=== PATIENT | female | born 1950 | race Caucasian/White ===

== ENCOUNTER → 2016-11-09 | Outpatient (CLI) | payer OTHER, BC ==
[~2016-11-09] VITALS: Ht 162.6 cm; Wt 125.4 kg
[~2016-11-09] MED LIST: BENICAR HCT 401 EAC1 PO; BENICAR40 MG PO; COUMADIN 4 MG TA4 M1 PO; CYCLOBENZAPRINE10 MG PO; DEXILANT30 MG PO; EXCEDRIN CAPLE1 EACH PO; FISH OIL 1,0001 EAC5 PO; HYDROCODON-ACE1 EAC7 PO; HYDROCODON-ACE1 EACH PO; HYDROCODONE-AP1 EAC6 PO; LUNESTA3 MG PO; METAXALONE800 MG PO; NABUMETONE 500500 M1 PO; NEXIUM40 MG PO; PAXIL40 MG PO; PERCOCET PO; SIMVASTATIN20 MG PO; SKELAXIN 800 M800 M1 PO; TOVIAZ8 MG PO; TRICOR145 MG PO; VESICARE 5 MG TA5 M1 PO; ZOLOFT50 MG PO
--- NOTE | ~2016-11-09 | HPC ---
[facility] [place] [address] [address] [place] [address] PAIN MANAGEMENT CONSULTATION Name: SONA VILLEGAS Room #: REG [facility].#: [id number] Admission: 11/09/16 Attend Phys: Toni Santos MD Discharge: Date of : 48 Report #: [id number] THIS REPORT FOR: //name// CC: Vania Santos DATE OF SERVICE: 11/09/2016 Followup visit for low back pain, bilateral lower extremities. The patient returns to pain clinic today for renewal of medication under terms of an opioid agreement. She has done well with her spondylosis and radiculopathy with an intermittent injection and use of a small amount of hydrocodone. I provided with hydrocodone 5/325. She takes one to two tablets 2-4 times a day, averaging no more than 20 mg of hydrocodone or about 20 morphine mg equivalents per day. She stands this for some time under terms of our agreement and shown no misuse or abuse. Urine drug screen will be performed as part of our agreement. We reviewed her contract in detail and he has agreed to safeguard her medications appropriately as discussed before. She had no other significant health changes recently. PHYSICAL EXAMINATION: VITAL SIGNS: Her blood pressure is 153/92, heart rate 53 and her BMI is 47.4. She is able to move easily from sitting to standing position and walk without antalgic feature. She has pain across her low back and straight leg raising discomfort. IMPRESSION: Chronic low back pain with radiculopathy. PLAN: I renewed her medication under terms of our opioid agreement. She will safeguard her medication. <ELECTRONICALLY SIGNED> By: Toni Santos MD 11/11/16 1329 [id number] 2044 Toni Santos MD /nt
[2016-11-09 15:03] VITALS: BP 153/92
== END | disposition home or self-care (01) ==
LOC: PAIN 14:41
DX: M54.16 Radiculopathy, lumbar region (principal); G89.29 Other chronic pain; Z87.891 Personal history of nicotine dependence

== ENCOUNTER → 2017-03-06 | Outpatient (CLI) | payer OTHER, BC ==
[~2017-03-06] VITALS: Ht 157.5 cm; Wt 124.7 kg
--- NOTE | ~2017-03-06 | HPC ---
[facility] [address] [address] PAIN MANAGEMENT CONSULTATION Name: SONA VILLEGAS Room #: REG [facility] Shania.#: [id number] Admission: 03/06/17 Attend Phys: Toni Santos MD Discharge: Date of : 48 Report #: [id number] THIS REPORT FOR: //name// CC: Vania Santos DATE OF SERVICE: 03/06/2017 DATE OF REGISTRATION: 03/06/2017 Followup visit for chronic low back pain with radiculopathy, medication management. I am seeing the patient today at a 3-month interval visit. I see her for management of high risk medication. She continues to do quite well on small dose of hydrocodone which I have been providing for her dating back nearly 10 years. She has never shown any opioid misuse nor has she demonstrated signs of an opioid use disorder. We are treating chronic intractable pain and she has done very well with it. She has been using medication in lieu of injections and finds that she is doing really quite well. Her last course of physical therapy was in November of 2015 when she was referred for therapeutic exercise strengthening, gait training and home program for her spondylosis. I was also concerned because of her osteoporosis and her risk of fracture. She has been managing that also with medication. PHYSICAL EXAMINATION: She is a destiny 66-year-old pleasant, alert and oriented. She shows no signs of discomfort during our discussion but scores her pain as a 4. When she moves and walks, she has immediate discomfort in the back and range of motion is limited there. She has localized tenderness across the lumbosacral spine without radiculopathy. IMPRESSION: 1. Chronic intractable low back pain. She has had history of radiculopathy, but today it demonstrates no evidence of radiculopathy. Most of her pain is spondylitic in nature. 2. Morbid obesity. 3. Management of high risk medication. PLAN: I renewed her hydrocodone at 5/325, #120 tablets per month. We discussed our opioid agreement in detail, risks and benefits of medication and also the CDC guidelines. [facility] [address] [facility] [place] [address] PAIN MANAGEMENT CONSULTATION Name: VILLEGASSONA Room #: REG [facility] Wylie#: [id number] Admission: 03/06/17 Attend Phys: Toni Santos MD Discharge: Date of : 48 Report #: [id number] Plan for her is to return in 3 months. By: [id number] Toni Santos MD /nt
[2017-03-06 14:06] VITALS: BP 159/113
== END ==
LOC: PAIN 07:44
DX: M54.16 Radiculopathy, lumbar region (principal); G89.29 Other chronic pain; E66.01 Morbid (severe) obesity due to excess calories; I10 Essential (primary) hypertension; Z87.891 Personal history of nicotine dependence

== ENCOUNTER → 2017-06-05 | Outpatient (CLI) | payer OTHER, BC ==
[~2017-06-05] VITALS: Ht 157.5 cm; Wt 126.1 kg
[~2017-06-05] MED LIST changes: +NORVASC5 MG PO
--- NOTE | ~2017-06-05 | HPC ---
[facility] [place] [address] [place] [address] PAIN MANAGEMENT CONSULTATION Name: SONA VILLEGAS Room #: REG [facility] Dejan#: [id number] Admission: 06/05/17 Attend Phys: Toni Santos MD Discharge: Date of : 48 Report #: [id number] THIS REPORT FOR: //name// CC: Vania Meade Toni Santos DATE OF SERVICE: 06/06/2017 Followup visit for persistent low back pain with radiculopathy. The patient returns to the pain clinic today for a 15-minute followup visit. She has a pain score of 5-6. It is worse with standing, walking and weather changes. She has been trying to do pool exercise, but just cannot do much of it because it increases her back pain after she has done. She has tried to push through that initial exercise, but says it is getting more difficult. She has radiating pain into the thigh in the L5-S1 distribution, which has also been worsening and is burning and constant. MEDICATIONS: Amlodipine, I provided her with hydrocodone 5/325 as needed 4 times daily, cyclobenzaprine is taken at bedtime, omeprazole, Zoloft, Toviaz, simvastatin, olmesartan, and nabumetone 500 mg b.i.d. Side effects of nonsteroidal anti-inflammatory drugs reviewed. PHYSICAL EXAMINATION: She is obese with a BMI of 50.8, blood pressure 130/90, heart rate 104. She is able to move from a sitting to standing position independently, but has pain across her back when she stands and flexes her back and extends. Straight leg raising reproduces pain in the L5-S1 distribution bilaterally. Sensation is intact. No focal weakness. IMPRESSION: Low back pain with radiculopathy. PLAN: 1. I renewed her medication under terms of an opioid agreement. Safeguarding her medications is critical. Without medication, she would have difficulty getting about and she is grateful for the relief that she gets. She notices the importance of safeguarding medication. 2. MRI of the lumbar spine will help determine further directions. We have discussed repeating the injections also spinal cord stimulation in addition to possible surgery, which she is hopeful to avoid. She understands that weight plays a big role in her problems, but it is difficult for her to lose weight, but she can move without pain. [address] [address] PAIN MANAGEMENT CONSULTATION Name: SONA VILLEGAS Alin Room #: REG [facility]#: [id number] Admission: 06/05/17 Attend Phys: Toni Santos MD Discharge: Date of : 48 Report #: [id number] Followup visit is scheduled after the MRI. By: 1215 1246 Toni Santos MD /nt
[2017-06-05 13:49] VITALS: BP 130/90
== END | disposition home or self-care (01) ==
LOC: PAIN 07:38
DX: M54.16 Radiculopathy, lumbar region (principal); Z68.43 Body mass index [BMI] 50.0-59.9, adult; Z87.891 Personal history of nicotine dependence

== ENCOUNTER → 2017-07-13 | Outpatient (CLI) | payer OTHER, BC ==
[~2017-07-13] VITALS: Ht 157.5 cm; Wt 126.1 kg
[~2017-07-13] MED LIST changes: +HYDROCODON-ACE1 EAC5 PO
--- NOTE | ~2017-07-13 | HPC ---
[facility] [place] [address] PAIN MANAGEMENT CONSULTATION Name: SONA VILLEGAS Room #: REG [facility] Dejan#: [id number] Admission: 07/13/17 Attend Phys: Toni Santos MD Discharge: Date of : 48 Report #: [id number] THIS REPORT FOR: //name// CC: Vania Deshaun Santos DATE OF SERVICE: 07/13/2017 DATE OF SERVICE: 07/13/2017 Followup visit for low back pain with radiculopathy. The patient returns to pain clinic today with a new MRI performed one 06/13/2017. We took a fair amount of time to review this study. Her MRI shows that she has multilevel spondylosis with mild dextroscoliosis. This creates multilevel high grade neural foraminal stenosis at L1-L2, L2-L3, L3-L4 and L4-L5. Findings are moderate to advanced on the right at L3-L4 and L4-L5. This is consistent with her current complaints of pain. Majority of her pain is in her low back and radiates into her right leg to her foot. It has been much more severe over the course of the last several months and even the last 2 weeks have been significantly worse. She has been managed in the past with medication taking hydrocodone 4 times daily. She is here today for trial of epidural steroid injection. PHYSICAL EXAMINATION: She is morbidly obese with a BMI around 50. Blood pressure is 177/111 today. Heart rate is 89. She is able to move independently from sitting to standing position, walks with painful gait. She has pain across the low back and radiating pain with straight leg raising. Sensation is diminished. Deep tendon reflexes are diminished in the lower extremities. IMPRESSION: 1. Chronic intractable low back pain with radiculopathy, bilateral, worse on the right. X-ray evidence of significant neural foraminal narrowing at multiple levels. 2. Hypertension. This is chronic, but it is worse today and this is felt to be related to her pain. 3. Morbid obesity. 4. Management of high risk medication. PLAN: 1. 25 minutes spent counseling. She was given more medications under terms of our opioid agreement. We discussed safeguarding aspects of the use of this medicine under terms of our agreement. We reviewed the opioid crisis in the [address] [address] PAIN MANAGEMENT CONSULTATION Name: SONA VILLEGAS Room #: REG [facility] Wylie#: [id number] Admission: 07/13/17 Attend Phys: Toni Santos MD Discharge: Date of : 48 Report #: [id number] [place]. 2. Epidural steroid injection under fluoroscopic guidance. PROCEDURE: The patient was taken to the fluoroscopic suite, placed prone, skin prepped with ChloraPrep. Skin anesthetized over the L3-L4 interspace. A 6-inch 20-gauge Tuohy epidural needle advanced in the epidural space in the first attempt, no blood or CSF was aspirated. 1 mL of 0.5% lidocaine was injected along with 80 mg of triamcinolone. She tolerated the procedure well. She was observed for 45 minutes and discharged with a reduction of pain to 4. Followup visit planned in 2-3 weeks. By: [id number] Toni Santos MD /nt
[2017-07-13 13:50] VITALS: BP 148/93
== END | disposition home or self-care (01) ==
LOC: PAIN 07:09
DX: M47.26 Other spondylosis with radiculopathy, lumbar region (principal); E66.01 Morbid (severe) obesity due to excess calories; Z68.43 Body mass index [BMI] 50.0-59.9, adult; I10 Essential (primary) hypertension; M48.06 Spinal stenosis, lumbar region; Z87.891 Personal history of nicotine dependence

== ENCOUNTER → 2018-01-03 | Outpatient (CLI) | payer OTHER ==
[~2018-01-03] VITALS: Ht 157.5 cm; Wt 114.7 kg
[~2018-01-03] MED LIST changes: +TRAZODONE HCL50 MG PO
--- NOTE | ~2018-01-03 | HPC ---
[facility] [address] [address] PAIN MANAGEMENT CONSULTATION Name: SONA VILLEGAS Room #: REG [facility] Shania.#: [id number] Admission: 01/03/18 Attend Phys: Toni Santos MD Discharge: Date of : 48 Report #: [id number] THIS REPORT FOR: //name// CC: Dr. Angie Santos DATE OF SERVICE: 01/03/2018 Followup visit for low back pain with radiculopathy. The patient is in the clinic today having lost 25 pounds and she is scheduled for bariatric surgery with Dr. Adams in the upcoming month. She has done well. She is hopeful that with weight loss, she will obtain better management of her back pain. She was inspired greatly by Dr. Reece neurosurgeon who saw her back in 08/2017. Despite her weight loss and her increasing activity, she still has pain in the level of 4-5/10 per day even with use of medicines. We will continue the medications until she has lost further weight and we will continue to encourage a rehabilitative approach. All medications were reviewed and reconciled. She is on Flexeril at bedtime, hydrocodone 10/325 4 times daily. She has had no significant side effects. She is not a fall risk currently. She is on a blood thinner. She has a history of hypertension. She is on an opioid agreement, which was initially signed in 06/2016. She has been provided with risk assessment tool, which shows that she is at low risk. She does not smoke nor does she use alcohol. IMPRESSION: 1. Chronic low back pain with spondylosis. 2. Status post left knee replacements. 3. Morbid obesity. 4. Spinal stenosis with radiculopathy. 5. Management of high risk medication. PLAN: I renewed her medications. I anticipate seeing her back in the pain clinic after her weight loss surgery. We will continue to try and use the lowest effective dose. We have evaluated her morphine milligram equivalency and discussed the CDC guidelines again today. [address] [address] PAIN MANAGEMENT CONSULTATION Name: SONA VILLEGAS Room #: REG [facility] Jauregui.#: [id number] Admission: 01/03/18 Attend Phys: Toni Santos MD Discharge: Date of : 48 Report #: [id number] Follow up in 3 months. <ELECTRONICALLY SIGNED> By: Toni Santos MD 02/12/18 1408 1718 0434 Toni Santos MD /nt
[2018-01-03 14:13] VITALS: BP 150/95
== END ==
LOC: PAIN 07:04
DX: M54.16 Radiculopathy, lumbar region (principal); M47.896 Other spondylosis, lumbar region; E66.01 Morbid (severe) obesity due to excess calories; Z96.652 Presence of left artificial knee joint; Z79.899 Other long term (current) drug therapy; Z68.42 Body mass index [BMI] 45.0-49.9, adult

== ENCOUNTER → 2018-04-09 | Outpatient (CLI) | payer OTHER ==
[~2018-04-09] VITALS: Ht 157.5 cm; Wt 105.3 kg
--- NOTE | ~2018-04-09 | HPC ---
[facility] [address] [place] [address] PAIN MANAGEMENT CONSULTATION Name: SONA VILLEGAS Room #: REG [facility] Leslee.#: [id number] Admission: 04/09/18 Attend Phys: Toni Santos MD Discharge: Date of : 48 Report #: [id number] THIS REPORT FOR: //name// CC: Vania Deshaun Santos Followup visit for chronic low back pain with radiculopathy. The patient returns to pain clinic today anxious and a bit excited about her upcoming surgery. She is going to have bariatric surgery with Dr. Adams. She is grateful that the surgery has been approved and that she is so close to having it. We talked about the surgery itself, postoperative pain and her recovery. We are hopeful that this will be helpful for her low back as well as her osteoarthritis. Conditions that caused pain for her include low back with spondylitic changes. She has chronic osteoarthritis and is status post left knee replacement and still has some pain there. She has spinal stenosis with radiculopathy. Today, she reports her pain score is a 4-5. She is on 40 morphine milligram equivalents at hydrocodone 10/325 four times daily. I reviewed the CDC guideline with her and talked about her dosing. We will carefully continue to monitor her under terms of our written agreement. PHYSICAL EXAMINATION: Shows blood pressure of 136/80, heart rate 107, respirations 20. BMI is 42.5. She is able to move from sitting to standing position, walks with some antalgic features, lying on a little bit of support from the chair. She has pain and tenderness in her knee across her low back. She has positive straight leg raising noted as well. Sensation is diminished in the lower extremities as well as deep tendon reflexes. IMPRESSION: 1. Chronic intractable low back pain under terms of written opioid agreement. 2. Lumbar radiculopathy. 3. Morbid obesity. 4. Management of high risk medication. I provided her with hydrocodone 10/325, 120 tablets for release today, 4 and 8 weeks. She was given Flexeril 10 mg at bedtime, which she has been using chronically to help with muscle spasm, back pain and sleep without side effect. She may need some additional support during the postoperative period and she will notify us of pain relief as an issue. By: 1114 25 Toni Santos MD /nt
[2018-04-09 09:54] VITALS: BP 136/80
== END ==
LOC: PAIN 06:49
DX: M54.16 Radiculopathy, lumbar region (principal); E66.01 Morbid (severe) obesity due to excess calories; F11.90 Opioid use, unspecified, uncomplicated; Z68.41 Body mass index [BMI] 40.0-44.9, adult

== ENCOUNTER → 2018-08-27 | Outpatient (CLI) | payer OTHER ==
[~2018-08-27] VITALS: Ht 157.5 cm; Wt 90.4 kg
--- NOTE | ~2018-08-27 | HPC ---
[facility] [address] [place] [address] PAIN MANAGEMENT CONSULTATION Name: SONA VILLEGAS Alin [facility] [id number] Admission: 08/27/18 Attend Phys: Lily King Discharge: Date of : 48 Report #: [id number] THIS REPORT FOR: //name// CC: Lily King KHOI Meade DATE OF SERVICE: 08/27/2018 REASON FOR VISIT: Followup visit today for her chronic low back pain with radiculopathy for her medication management. HISTORY OF PRESENT ILLNESS: The patient returns today to the clinic for her medication management, refill of her medicines for her low back pain and her hip pain. She had bariatric surgery in April and has since lost 32 pounds. She states she is feeling much better. She is doing physical therapy at the facility twice a week and at home she continues her therapy. She states that she has pain of 5-6 today because she has been splitting her pills in half to get to appointment since she was unable to get in sooner, so her pain score is little higher than it had been. She states she has pain mostly with walking, standing, but her medications do help significantly. She states she is feeling so much better since she had her bariatric surgery. ALLERGIES: No known drug allergies. MEDICATION: List hydrocodone 10/325 up to 4 times a day, cyclobenzaprine 10 t.i.d., trazodone 50 mg at bedtime, amlodipine 5 mg once a day, Nexium 40 mg twice a day, Zoloft 50 mg at bedtime, Toviaz 8 mg daily, Benicar 40 mg once a day, nabumetone 50 mg twice a day. PQRS: 1. The patient has a history of osteoarthritis in her hips and lower back. Denies rheumatoid arthritis. 2. The patient is 5 feet 2 inches, weight today is 199. BMI is 36.4. 3. Vital signs: Blood pressure 138/103, pulse is 92, respirations 18, oxygen sat is 97. 4. Pain score 5-6. 5. Fall risk. Denies dizziness, does not need help walking or standing and has not fallen in the last 3 months. 6. Denies blood thinners. 7. Does have a history of hypertension. 8. Opioid therapy is greater than 6 months. Therefore, opioid contract is on the chart. 9. Risk assessment tool is moderate risk. 10. Functional assessment is 51/70. 11. Denies recreational drug use, is a former smoker and occasionally has some [address] [address] PAIN MANAGEMENT CONSULTATION Name: SONA VILLEGAS Room #: [facility] [id number] Admission: 08/27/18 Attend Phys: Lily King Discharge: Date of : 48 Report #: [id number] alcohol. [place] PDMP has been checked and is on the chart. There a script for doctor that she was given oxycodone after her bariatric surgery. This was discussed with the patient and reminded that she should call us if any further opioids are given. She is only supposed to get opioids from Dr. Toni Santos. It was also noted that says the patient pay, I asked if that was cheaper for her medicines that way, the patient said she thought she was doing it through her [employer] Medicare insurance, but she was going to check with them. The pharmacy to see why it says that or if it is cheaper for her to do patient pay than through her insurance. PHYSICAL EXAMINATION: VITAL SIGNS: The patient's blood pressure today is 138/103. The patient was hopeful that it was lower than that. BMI is 36.4, down from 42.5. Mucskelatal: She is able to move from standing to sitting, walks with antalgic features. States she is able to get up easier. Pain, tenderness in her lower back and in her knee, positive straight raising noted as well. Sensation is diminished in her lower extremities. HEENT: Normocephalic, atraumatic. Extraocular eye muscles are intact. Mucous membranes are moist. ASSESSMENT: 1. Chronic intractable low back pain. 2. Lumbar radiculopathy. 3. Morbid obesity. 4. Medication of high risk medicines. We reviewed the fact that opiate medications are being used to provide analgesia adequate to support activities of daily living, not attempting to achieve a specific pain score on the 0-10 Visual Analog Scale. The current opiate medications are providing sufficient analgesia to allow the patient to participate in activities of daily living. The patient is not exhibiting any aberrant behavior suggestive of drug diversion. The patient is not having any adverse reactions to medications. The patient is not suffering from daytime somnolence or mental acuity changes. The patient is managing opiate-induced constipation with appropriate [id number] agents and dietary considerations. The patient was counseled on concern for caution with operating a motor vehicle while using opiate medications. A physical exam was performed and the patient's functional status was evaluated. All patients with back pain were advised against the bed rest greater than 4 days and were advised to return to normal activities. Pain score assessment was noted and the treatment plan was reviewed with the patient. All current medications, both prescribed and OTC were reviewed and reconciled on the electronic medical record. Tobacco screening was accomplished and smoking cessation was advised when indicated. BMI was noted and diet/exercise [facility] [address] [place] [address] PAIN MANAGEMENT CONSULTATION Name: SONA VILLEGAS Room #: REG [facility]#: [id number] Admission: 08/27/18 Attend Phys: Lily King Discharge: Date of : 48 Report #: [id number] modification was recommended for all patients following outside normal parameters. I reviewed with the patient today their responsibilities to safeguard prescription medications, reviewed their responsibility to utilize medications only as prescribed by the physician. They are to seek and receive pain medications only from 1 physician group ( [facility]). They are to use 1 pharmacy and keep the clinic informed if they change pharmacies. Their responsibilities include making followup visits in a timely fashion and to avoid abrupt discontinuation of medication usage. Their responsibilities further include bringing their medications (bottles from the pharmacy with residual pills) to the visit for possible confirmation of pill counts and the patient understands it is their responsibility to submit to random drug screens to ensure both that the medications prescribed are present, and that no other controlled substances are present. All prescriptions provided today were generated electronically. PLAN: 1. I have provided the patient with hydrocodone 10/325, #100, 20 pills; released today, 4-week and 8-week. The patient will try to decrease her use as she is able to 3 times a day. This is her goal to decrease all of her medicines including her narcotic use. 2. The patient was given Flexeril 10 mg #90 that she takes at bedtime for chronic muscle spasms. 3. It was also discussed to decrease her nabumetone 500 mg tablets to possibly once a day since she has had the bariatric surgery. The patient thinks that she would be able to do that, does know when she had to be off of it for her surgery, that she had increased aches and pains in her joints. We do not write for this medicine, but the patient is hopeful to decrease that use. 4. The patient will be seen in 3-month interval for her medicines or slightly longer if able to decrease to 3 hydrocodone a day. The patient was seen in collaboration with Dr. Toni Santos. <ELECTRONICALLY SIGNED> By: Lily King 08/28/18 0752 1313 2019 Lily King /nt
[2018-08-27 12:39] VITALS: BP 138/103
== END ==
LOC: PAIN 07:14
DX: M54.16 Radiculopathy, lumbar region (principal); G89.4 Chronic pain syndrome; E66.01 Morbid (severe) obesity due to excess calories; Z79.899 Other long term (current) drug therapy

== ENCOUNTER → 2018-12-17 | Outpatient (CLI) | payer OTHER, BC ==
[~2018-12-17] VITALS: Ht 154.9 cm; Wt 86.8 kg
--- NOTE | ~2018-12-17 | HPC ---
[facility] [place] [address] PAIN MANAGEMENT CONSULTATION Name: SONA VILLEGAS [facility] [id number] Admission: 12/17/18 Attend Phys: Toni Santos MD Discharge: Date of : 48 Report #: [id number] THIS REPORT FOR: //name// CC: Vania Santos DATE OF SERVICE: 12/17/2018 SUBJECTIVE: This is a followup visit for chronic low back pain with radiculopathy. The patient is here today in followup. She is doing really well. Continues to lose weight. Her BMI at last visit was 36.4, today is 36.2. She had weight loss surgery in 2018 and feels that she is doing better in many regards including pain. She has less pain and is taking a little bit less hydrocodone. We are going to reduce her medication by 1 tablet per day from 4-3. She is on hydrocodone 10/325, trazodone, amlodipine, Nexium, Zoloft, Toviaz, Benicar, nabumetone. She reports today that her activities of daily living are easier now that she is carrying less weight. She is continuing physical therapy and exercising regularly. Most of the pain occurs across her low back and she describes it as a more dull, chronic, constant sensation. PQRS is completed. She complains of pain in her hips and low back, which is related to osteoarthritis. She is not a fall risk and has not fallen in the last 3 months. She did not use blood thinners or have a history of hypertension. She is on an opioid agreement, has considered at moderate risk according to the opioid risk tool and we follow her at 3-month intervals. Her MME will reduce from 40 to 30 with her current medications. She denies use of tobacco, occasionally has alcohol in social setting. PDMP is reviewed from 11/2018. PHYSICAL EXAMINATION: GENERAL: She appears to be in good spirits. VITAL SIGNS: Her blood pressure 151/90, heart rate 100, BMI against 36.2. MUSCULOSKELETAL: She is able to independently move from sitting to standing position. Her gait is stable. She does not show any weakness throughout the lower extremities. There is tenderness across the low back and pain with range of motion of the lumbar and thoracic spine in flexion and in extension. Sensation is intact. IMPRESSION: 1. Chronic intractable low back pain with radiculopathy. [address] [address] PAIN MANAGEMENT CONSULTATION Name: SONA VILLEGAS Room #: REG CLI Dejan#: [id number] Admission: 12/17/18 Attend Phys: Toni Santos MD Discharge: Date of : 48 Report #: [id number] 2. Management of high risk medications under terms of written opioid agreement. I reviewed her medication responsibilities, to safeguard her medication. We have agreed that she can get by on a bit less medication. We reviewed our plans for her return to the pain clinic at 3-month intervals. Followup visit scheduled in 3 months. Medications provided hydrocodone #90 one tablet q.8 hours p.r.n. for breakthrough pain. By: [id number] Toni Santos MD /nt
[2018-12-17 13:27] VITALS: BP 151/90
--- NOTE | 2018-12-17 13:35 | NUR ---
Pain Clinic Assessment: 1. History of Osteoarthritis: Not Applicable History of Rheumatoid Arthritis: Not Applicable 2. Height: 5 ft. 1 in. 154.9 cm. Weight: 191.4 lb. oz. 86.819 kg. Patient's BMI: 36.2 3. Vital Signs: BP: 151/90 Pulse: 100 Resp: 18 Temp: 02 Sat: 92 ECG Mon: 4. Pain Intensity: 5 5. Fall Risk: Dizziness: N Needs help standing or walking: N Fallen in the last 3 months: N Fall risk comments: 6. Patient on Blood Thinner: None 7. History of Hypertension: Y 8. Opioid Therapy greater than 6 weeks: Y Opiate Contract Signed: 06/10/16 9. Risk Assessment Tool Provided: HIGH RISK-8 10. Functional Assessment Tool: 11. Recreational Drug Use: Never Drug Type: Tobacco Use: Former Smoker Tobacco Type: Amount or Packs/day: How Many Years: Alcohol Use: Yes Frequency: Quant:
== END ==
LOC: PAIN 07:15
DX: M54.16 Radiculopathy, lumbar region (principal); G89.4 Chronic pain syndrome; Z79.899 Other long term (current) drug therapy; Z79.891 Long term (current) use of opiate analgesic

== ENCOUNTER → 2019-03-14 | Outpatient (CLI) | payer OTHER, BC ==
[~2019-03-14] VITALS: Ht 154.9 cm; Wt 79.7 kg
[~2019-03-14] MED LIST changes: +FLEXERIL PO
[2019-03-14 10:08] VITALS: BP 103/65
--- NOTE | 2019-03-14 10:21 | NUR ---
Pain Clinic Assessment: 1. History of Osteoarthritis: Not Applicable History of Rheumatoid Arthritis: Not Applicable 2. Height: 5 ft. 1 in. 154.9 cm. Weight: 175.6 lb. oz. 79.652 kg. Patient's BMI: 33.2 3. Vital Signs: BP: 103/65 Pulse: 107 Resp: 20 Temp: 02 Sat: 99 ECG Mon: 4. Pain Intensity: 6 5. Fall Risk: Dizziness: N Needs help standing or walking: N Fallen in the last 3 months: N Fall risk comments: 6. Patient on Blood Thinner: None 7. History of Hypertension: Y 8. Opioid Therapy greater than 6 weeks: Y Opiate Contract Signed: 06/10/16 9. Risk Assessment Tool Provided: HIGH RISK-8 10. Functional Assessment Tool: 11. Recreational Drug Use: Never Drug Type: Tobacco Use: Former Smoker Tobacco Type: Amount or Packs/day: How Many Years: Alcohol Use: Yes Frequency: Quant:
--- NOTE | 2019-03-18 07:19 | HPC ---
[facility] [address] [place] [address] PAIN MANAGEMENT CONSULTATION Name: VILLEGASSONA BRIGGS Alin Room #: REG [facility] LesleeIdalmis#: [id number] Admission: 03/14/19 ������������������ Attend Phys: Lily King Discharge: ������������������ Date of : 48 Report #: [id number] THIS REPORT FOR: //name// CC: Lily King Vania Meade DATE OF SERVICE: 03/14/2019 CHIEF COMPLAINT: Chronic low back pain with radiculopathy. HISTORY OF PRESENT ILLNESS: This is a very pleasant 68-year-old female who returns to the pain clinic today for refill of her medications. She tells me that she is doing quite well except that she has had some days that she is needing four hydrocodone tablets instead of the three. Dr. Toni Santos had decreased her hydrocodone last month. The patient tells me that she has been having to take more Excedrin since this decrease in this medicine, which she does not feel is good for her gastric bypass surgery in her stomach. She would like to have a slight increase if she is able. The patient tells me that she is more active she thinks since her weight loss. She has lost 100 pounds total in almost a year since she has had her gastric bypass. She tells me that she would like to lose a few more pounds, but feels that she is doing so much better she is able to walk more and be more active, though the walking does increase her pain. Her pain score today is 6/10 in the lower back region, which is a dull pain, a sharp pain or constant pain and she has no problems with constipation or daytime sleepiness. ALLERGIES: No known drug allergies. CURRENT LIST OF MEDICATIONS: Cyclobenzaprine 10 mg at bedtime, hydrocodone 10/325 three to four times a day, trazodone 50 mg at bedtime, amlodipine 5 mg daily, Nexium 40 mg b.i.d., Zoloft 50 mg at bedtime, Toviaz 8 mg daily and nabumetone 500 mg b.i.d. PQRS: 1. She has arthritic changes in her lower back and her hips. Denies any rheumatoid arthritis. 2. Height is 5 feet 1 inch, weight is 175, BMI is 33. Vital signs: Blood pressure 103/65, pulse is 105, respirations 20, oxygen sat is 99. Pain score 6/10. 3. Fall risk: Denies dizziness. Does not need help walking or standing. Has not fallen in the last 3 months. The patient is not on any blood thinners, but does take medicines for hypertension. Opioid therapy is greater than 6 weeks; therefore, an opioid signed contract is on the chart. Her risk assessment tool is high. Her functional assessment is 30/70. 4. Recreational drug use: She denies. She is [place] [address] PAIN MANAGEMENT CONSULTATION Name: SONA VILLEGAS [facility] [id number] Admission: 03/14/19 ������������������ Attend Phys: Lily King Discharge: ������������������ Date of : 48 Report #: [id number] drinks a small amount of alcohol. We did check the prescription monitoring system. The patient is filling appropriately from Dr. Toni Santos. She tells me she safeguards her medications with no aberrant behavior. We will check a urine drug screen in the future. PHYSICAL EXAMINATION: GENERAL: This is a well-developed, well-nourished 68-year-old female who is alert and orientated and appears her stated age, placing her pain score today at 6/10. HEENT: Normocephalic, atraumatic. Extraocular eye muscles are intact. Mucous membranes are moist. MUSCULOSKELETAL: She is able to move independently from sitting to standing. Her gait is stable. She does not show any weakness in her lower extremities. They seem symmetrical in bulk and tone. She does complain of some tenderness across the lower back area today. IMPRESSION: Chronic intractable low back pain with radiculopathy, management of high risk medications under terms of written opioid agreement. PLAN: 1. We discussed treatment options with the patient today. The patient tells me that she is doing fairly well with her medications, though some days, she does require four tablets of her hydrocodone a day and fear of running out of her medications. She has taken more Excedrin, which she does not believe is good for her stomach since she has gastric bypass surgery and requested a slight increase today. We discussed how the patient takes her medications and we feel that after our discussion today, she would benefit from possibly 100 pills in the 30-day supply that will enable her on bad days to take four pills a day and on good days, she will continue at her three. 2. The patient feels that this is a good compromise. She does not believe that she needs four every single day and does not want to have the extra pills lying around the house, so script was given today for hydrocodone 10/325, #100 for release today, 4- and an 8-week. 3. Flexeril 10 mg, #90 with one additional refill was also given. The patient takes that at bedtime and finds that is very beneficial for muscle spasms. 4. We discussed the CDC guidelines with a slight increase in her medicine. She is still below their guidelines and currently would be placed at 35 morphine mEq a day. 5. The patient is seen with Dr. Toni Santos who collaborated on care today. The patient will return in three months for a followup visit. ��������������������������������������������� <ELECTRONICALLY SIGNED> ���������������������������������������� By: Lily King ��������������������������������������������� 03/18/19 0719 1118 Lily King /nt
== END ==
LOC: PAIN 06:47
DX: M54.16 Radiculopathy, lumbar region (principal); G89.4 Chronic pain syndrome; Z79.899 Other long term (current) drug therapy

== ENCOUNTER → 2019-06-24 | Outpatient (CLI) | payer OTHER, BC ==
[~2019-06-24] VITALS: Ht 157.5 cm; Wt 77.3 kg
[~2019-06-24] MED LIST changes: +OXYBUTYNIN CHLOR5 M1 PO
[2019-06-24 12:48] VITALS: BP 133/92
--- NOTE | 2019-06-24 12:53 | NUR ---
Pain Clinic Assessment: 1. History of Osteoarthritis: Not Applicable History of Rheumatoid Arthritis: Not Applicable 2. Height: 5 ft. 2 in. 157.5 cm. Weight: 170.4 lb. oz. 77.293 kg. Patient's BMI: 31.2 3. Vital Signs: BP: 133/92 Pulse: 101 Resp: 16 Temp: 02 Sat: 98 ECG Mon: 4. Pain Intensity: 4 5. Fall Risk: Dizziness: N Needs help standing or walking: N Fallen in the last 3 months: N Fall risk comments: 6. Patient on Blood Thinner: None 7. History of Hypertension: Y 8. Opioid Therapy greater than 6 weeks: Y Opiate Contract Signed: 06/10/16 9. Risk Assessment Tool Provided: HIGH RISK-8 10. Functional Assessment Tool: 11. Recreational Drug Use: Never Drug Type: Tobacco Use: Former Smoker Tobacco Type: Amount or Packs/day: How Many Years: Alcohol Use: Yes Frequency: Special Occasions Quant:
--- NOTE | 2019-06-25 08:24 | HPC ---
[facility] [address] [place] [address] PAIN MANAGEMENT CONSULTATION Name: SONA VILLEGAS Room #: REG [facility].#: [id number] Admission: 06/24/19 Attend Phys: Lily King Discharge: Date of : 48 Report #: [id number] THIS REPORT FOR: //name// CC: Lily Meade DATE OF SERVICE: 06/24/2019 CHIEF COMPLAINT: Chronic low back pain with radiculopathy. HISTORY OF PRESENT ILLNESS: This is a very pleasant 69-year-old female who returns to the pain clinic today for refill of her medications that she uses to treat her ongoing low back pain. She does tell me she does have knee pain occasionally, which has gotten better since she has had her gastric bypass surgery more than a year ago and she has lost greater than 100 pounds. She tells me she has also been exercising in the pool and that has been helping all of her pain as well. She does have pain score of 4/10 today, is a dull, sharp pain that is exacerbated by walking and standing, but again her medications are very helpful. She denies any problems with constipation or daytime sleepiness. ALLERGIES: No known drug allergies. CURRENT LIST OF MEDICATIONS: Oxybutynin, Flexeril, hydrocodone 10/325, trazodone 50 mg, Norvasc 5 mg, Nexium 40 mg, Zoloft 50 mg, Toviaz 8 mg and nabumetone 500 mg. PQRS: 1. She has arthritic changes in her lower back and hips and knees. Denies any rheumatoid arthritis. 2. Height is 5 feet 2 inches, weight is 170, BMI is 31. 3. Vital signs 133/92, pulse is 101, respirations 16, oxygen sat is 98. 4. Pain score is 4/10. 5. Denies dizziness, does not need help walking or standing, has not fallen in the last 3 months. 6. The patient is not on any blood thinners. She does take medicine for hypertension. 7. Opioid therapy is greater than 6 weeks; therefore, an opioid signed contract is on the chart. Risk assessment is high. Functional assessment is . 8. Recreational drug use, she denies. She is a former smoker and does occasionally drink alcohol. The patient is filling prescriptions appropriately according to the prescription monitoring system. We will check a random drug screen on this patient today. PHYSICAL EXAMINATION: [address] [address] PAIN MANAGEMENT CONSULTATION Name: SONA VILLEGAS Room #: REG CL Dejan#: [id number] Admission: 06/24/19 Attend Phys: Lily King Discharge: Date of : 48 Report #: [id number] GENERAL: This is a well-developed, well-nourished 69-year-old female who appears her stated age. She is alert and orientated, placing her current pain score today at 4/10. HEENT: Normocephalic, atraumatic. Extraocular eye muscles are intact. Mucous membranes are moist. MUSCULOSKELETAL: The patient's gait is stable. She complains of tenderness across her low back area, does not radiate into her legs. She is able to move independently from sitting to standing. Her lower extremity strength judged to be 5/5 in all major muscle groups. IMPRESSION: 1. Chronic intractable low back pain. 2. Management of high risk medications under terms of written opioid agreement. 3. Lumbar radiculopathy. We reviewed the fact that opiate medications are being used to provide analgesia adequate to support activities of daily living, not attempting to achieve a specific pain score on the 0-10 Visual Analog Scale. The current opiate medications are providing sufficient analgesia to allow the patient to participate in activities of daily living. The patient is not exhibiting any aberrant behavior suggestive of drug diversion. The patient is not having any adverse reactions to medications. The patient is not suffering from daytime somnolence or mental acuity changes. The patient is managing opiate-induced constipation with appropriate yfzq-lkm-fwublup agents and dietary considerations. The patient was counseled on concern for caution with operating a motor vehicle while using opiate medications. A physical exam was performed and the patient's functional status was evaluated. All patients with back pain were advised against the bed rest greater than 4 days and were advised to return to normal activities. Pain score assessment was noted and the treatment plan was reviewed with the patient. All current medications, both prescribed and OTC were reviewed and reconciled on the electronic medical record. Tobacco screening was accomplished and smoking cessation was advised when indicated. BMI was noted and diet/exercise modification was recommended for all patients following outside normal parameters. I reviewed with the patient today their responsibilities to safeguard prescription medications, reviewed their responsibility to utilize medications only as prescribed by the physician. They are to seek and receive pain medications only from 1 physician group ([facility]). They are to use 1 pharmacy and keep the clinic informed if they change pharmacies. Their responsibilities include making followup visits in a timely fashion and to avoid abrupt discontinuation of medication usage. Their responsibilities further include bringing their medications (bottles from the pharmacy with residual pills) to the visit for possible confirmation of pill counts and the patient [address] [address] PAIN MANAGEMENT CONSULTATION Name: SONA VILLEGAS Room #: REG [facility]AC[facility] Wylie#: [id number] Admission: 06/24/19 Attend Phys: Lily King Discharge: Date of : 48 Report #: [id number] understands it is their responsibility to submit to random drug screens to ensure both that the medications prescribed are present, and that no other controlled substances are present. All prescriptions provided today were generated electronically. PLAN: 1. We discussed treatment options with the patient today. The patient is doing quite well with her current regimen of hydrocodone 10/325. She averages 2-3 times pills a day. Scripts given for #100 for release today, 4-week and 8-week. 2. Scripts given for Flexeril 10 mg #90 with 2 additional refills. 3. We did collect a urine specimen for random drug screen on this patient. 4. According to the CDC guidelines, patient's morphine mEq is 30 MME, which is below their CDC requirements. 5. Dr. Toni Santos did see the patient and collaborated care. The patient will follow up in 3 months. <ELECTRONICALLY SIGNED> By: Lily King 06/25/19 0824 [id number] [id number] Lily King /nt
== END ==
LOC: PAIN 06:58
DX: M54.16 Radiculopathy, lumbar region (principal); M54.5 Low back pain; Z79.891 Long term (current) use of opiate analgesic

== ENCOUNTER → 2019-09-23 | Outpatient (CLI) | payer OTHER, BC ==
[~2019-09-23] VITALS: Ht 157.5 cm; Wt 77.6 kg
[2019-09-23 12:29] VITALS: BP 149/87
--- NOTE | 2019-09-23 12:40 | NUR ---
Pain Clinic Assessment: 1. History of Osteoarthritis: L SPINE KNEES History of Rheumatoid Arthritis: DENIES 2. Height: 5 ft. 2 in. 157.5 cm. Weight: 171.0 lb. oz. 77.565 kg. Patient's BMI: 31.3 3. Vital Signs: BP: 149/87 Pulse: 90 Resp: 20 Temp: 02 Sat: 100 ECG Mon: 4. Pain Intensity: 4 5. Fall Risk: Dizziness: N Needs help standing or walking: N Fallen in the last 3 months: N Fall risk comments: 6. Patient on Blood Thinner: None 7. History of Hypertension: Y 8. Opioid Therapy greater than 6 weeks: Y Opiate Contract Signed: 06/10/16 9. Risk Assessment Tool Provided: HIGH RISK-8 10. Functional Assessment Tool: 11. Recreational Drug Use: Never Drug Type: Tobacco Use: Former Smoker Tobacco Type: Amount or Packs/day: How Many Years: Alcohol Use: Yes Frequency: Monthly Quant:
--- NOTE | 2019-09-24 08:49 | HPC ---
[facility] [address] [place] [address] PAIN MANAGEMENT CONSULTATION Name: SONA VILLEGAS Room #: REG [facility].#: [id number] Admission: 09/23/19 Attend Phys: Lily King Discharge: Date of : 48 Report #: [id number] THIS REPORT FOR: //name// CC: Lily Santos MD DATE OF SERVICE: 09/23/2019 CHIEF COMPLAINT: Chronic low back pain with radiculopathy. HISTORY OF PRESENT ILLNESS: This is a very pleasant 69-year-old female who returns to the pain clinic today for refill of her medications that she takes for her ongoing low back pain. She does tell me that she "tweaked her back about a month ago." Since that time, her pain has also been traveling down into her buttocks bilaterally, down the posterior legs to the calf. It is a dull, sharp, constant, occasionally with tingling and burning pain. She is rating her pain score today at 4/10. Her pain is more pronounced when she is walking and standing. Finds her medications are very beneficial in controlling most of her pain. She has been using heat and ice occasionally. She denies any problems with daytime sleepiness or constipation as a result of her medications. ALLERGIES: No known drug allergies. CURRENT LIST OF MEDICATIONS: Hydrocodone 10/325 p.r.n., Flexeril 10 mg two to three times a day p.r.n., oxybutynin 5 mg daily, Desyrel 50 mg at bedtime, amlodipine 5 mg daily, Nexium 40 mg b.i.d., sertraline 50 mg at bedtime, Toviaz 8 mg daily and nabumetone 500 mg b.i.d. PQRS: 1. She has osteoarthritic changes in her lower back, hips and knees. Denies any rheumatoid arthritis. 2. Height is 5 feet 2 inches, weight is 171, BMI is 31. 3. Vital signs 149/87, pulse is 90, respirations 20, oxygen sat is 100. 4. Pain score is 4/10. 5. Denies dizziness, does not need help walking or standing, has not fallen in the last 3 months. 6. She is not on any blood thinners, but does take medicine for hypertension. 7. Opioid therapy is greater than 6 weeks; therefore, an opiate signed contract is on the chart. 8. Her risk assessment tool is high. 9. Functional assessment is 30/70. 9. Recreational drug use, she denies. She is a former smoker and occasionally drinks alcohol. [address] [address] PAIN MANAGEMENT CONSULTATION Name: SONA VILLEGAS Room #: REG [facility] Dejan#: [id number] Admission: 09/23/19 Attend Phys: Lily King Discharge: Date of : 48 Report #: [id number] According to the prescription monitoring system, the patient is filling appropriately for her medications. She is due to fill those today. Her current morphine mEq is 35 per day. There is a recent drug screen on the chart that is appropriate as well. PHYSICAL EXAMINATION: GENERAL: This is a well-developed, well-nourished 69-year-old female who appears her stated age. She is alert and orientated, rating her pain score at 4/10 today. HEENT: Normocephalic, atraumatic. Extraocular eye muscles are intact. Mucous membranes are moist. MUSCULOSKELETAL: She has tenderness across her lumbar spine that does radiate into her bilateral buttocks following the L3-L4, L4-L5 dermatomal distribution into the posterior legs currently to her knees. It is worse with prolonged standing. She does walk with a stable gait. Her lower extremity strength judged to be 5/5 in all major muscle groups. IMPRESSION: 1. Chronic intractable low back pain. 2. Lumbar radiculopathy following the L3-L4, L4-L5 dermatomal distribution. 3. Management of high risk for opioids under terms of written opioid agreement. We reviewed the fact that opiate medications are being used to provide analgesia adequate to support activities of daily living, not attempting to achieve a specific pain score on the 0-10 Visual Analog Scale. The current opiate medications are providing sufficient analgesia to allow the patient to participate in activities of daily living. The patient is not exhibiting any aberrant behavior suggestive of drug diversion. The patient is not having any adverse reactions to medications. The patient is not suffering from daytime somnolence or mental acuity changes. The patient is managing opiate-induced constipation with appropriate myjh-zdz-qjbqfmv agents and dietary considerations. The patient was counseled on concern for caution with operating a motor vehicle while using opiate medications. PLAN: 1. We discussed treatment options with the patient today. The patient did tweak her back greater than a month ago, has been having some radicular symptoms. We did talk about options for care using heat, ice, stretching to see if that is beneficial. She has been using her pain pills and her Flexeril, though it has been ongoing for greater than a month. I did encourage her that we could make an appointment with Dr. Toni Santos for an injection. Her last injection was in 2017. The patient would like to hold off currently, but will consider this and make an appointment if she is not better within a week's time. 2. Scripts given today for hydrocodone , #100, for today for an 8-week release. [facility] [address] [place] [address] PAIN MANAGEMENT CONSULTATION Name: VILLEGASACESONA L Room #: REG [facility] Dejan#: [id number] Admission: 09/23/19 Attend Phys: Lily King Discharge: Date of : 48 Report #: [id number] 3. Flexeril 10 mg t.i.d., #90 with 2 additional refills was sent electronically today. The patient uses these very sparingly for her ongoing back pain and muscle spasms. 4. The patient is seen in collaboration with Dr. Elio Alvarez. <ELECTRONICALLY SIGNED> By: Lily King 09/24/19 0849 1309 [id number] Lily King /nt
== END ==
LOC: PAIN 09-20 13:58
DX: M54.16 Radiculopathy, lumbar region (principal); G89.29 Other chronic pain; Z79.891 Long term (current) use of opiate analgesic

== ENCOUNTER → 2019-12-26 | Outpatient (CLI) | payer OTHER, BC ==
[~2019-12-26] VITALS: Ht 157.5 cm; Wt 78.3 kg
[2019-12-26 14:01] VITALS: BP 143/91
--- NOTE | 2019-12-26 14:10 | NUR ---
Pain Clinic Assessment: 1. History of Osteoarthritis: L SPINE KNEES History of Rheumatoid Arthritis: DENIES 2. Height: 5 ft. 2 in. 157.5 cm. Weight: 172.6 lb. oz. 78.291 kg. Patient's BMI: 31.6 3. Vital Signs: BP: 143/91 Pulse: 102 Resp: 18 Temp: 02 Sat: 97 ECG Mon: 4. Pain Intensity: 4.5 5. Fall Risk: Dizziness: N Needs help standing or walking: N Fallen in the last 3 months: N Fall risk comments: 6. Patient on Blood Thinner: None 7. History of Hypertension: Y 8. Opioid Therapy greater than 6 weeks: Y Opiate Contract Signed: 06/10/16 9. Risk Assessment Tool Provided: HIGH RISK-8 10. Functional Assessment Tool: 11. Recreational Drug Use: Never Drug Type: Tobacco Use: Former Smoker Tobacco Type: Amount or Packs/day: How Many Years: Alcohol Use: Yes Frequency: Weekly Quant: 1-2
--- NOTE | 2019-12-30 12:52 | HPC ---
[facility] [address] [place] [address] PAIN MANAGEMENT CONSULTATION Name: SONA VILLEGAS Room #: REG [facility].#: [id number] Admission: 12/26/19 Attend Phys: Lily King Discharge: Date of : 48 Report #: [id number] THIS REPORT FOR: cc: Vania Meade MD,Vania King,Lily VALDEZ ~ THIS REPORT FOR: //name// CC: Lily Meade DATE OF SERVICE: 12/26/2019 CHIEF COMPLAINT: Chronic low back pain with radiculopathy. HISTORY OF PRESENT ILLNESS: This is a very pleasant 69-year-old female who returns to the pain clinic today for refill of her medications. She reports that she is doing quite well, rating her pain a 4/10 today stating it is only in her lower back and buttocks. She is no longer having any leg pain. The pain that she is reporting is dull in character, worse when she walks or stands for a prolonged period of time, but she does find her medication and rest very beneficial. The patient denies any problems with constipation or daytime sleepiness from her medications. She also reports that she has stabilized in her weight currently. She is pleased with no increase in her weight over the holiday season since she has had her gastric bypass surgery. ALLERGIES: No known drug allergies. CURRENT LIST OF MEDICATIONS: Hydrocodone 10/325 p.r.n., Flexeril 10 mg p.r.n., Desyrel, Norvasc, Nexium, Zoloft, Toviaz and nabumetone. PQRS: 1. She has arthritic changes in her lower back, hips and knees. Denies any rheumatoid arthritis. 2. Height is 5 feet 2 inches, weight is 172, BMI is 31. 3. Vital signs 143/91, pulse is 102, respirations 18, oxygen sat is 97. 4. Pain is 4-5/10. 5. Denies dizziness, does not need help walking or standing, has not fallen in the last 3 months. 6. The patient is not on any blood thinners, but does take medicine for hypertension. Her opioid therapy is greater than 6 weeks; therefore, an opioid signed contract is on the chart. Her risk assessment tool is high. Functional assessment is 30/70. 7. Recreational drug use, she denies. She is a former smoker and does drink [address] [address] PAIN MANAGEMENT CONSULTATION Name: SONA VILLEGAS [id number] Admission: 12/26/19 Attend Phys: Lily King Discharge: Date of : 48 Report #: [id number] occasionally. According to the prescription monitoring system, the patient is filling appropriately for her medications, filling them in a timely fashion. She is due to fill her medications this weekend. According to the CDC guidelines, her morphine mEq is 35 MME per day. PHYSICAL EXAMINATION: GENERAL: This is alert and orientated, very pleasant 69-year-old female who appears her stated age, placing her current pain score at 4-5/10 today. She is a good historian. HEENT: Normocephalic, atraumatic. Extraocular eye muscles are intact. MUSCULOSKELETAL: She has tenderness in her lumbosacral region of her spine that radiates into her buttocks, but not into her legs currently. She has a slightly antalgic gait. Lower extremity strength judged to be 5/5 in all major muscle groups. IMPRESSION: 1. Chronic intractable low back pain. 2. Lumbar radiculopathy, following the L3-L4, L4-L5 dermatomal distribution. 3. Management of high risk medications under terms of written opioid agreement. We reviewed the fact that opiate medications are being used to provide analgesia adequate to support activities of daily living, not attempting to achieve a specific pain score on the 0-10 Visual Analog Scale. The current opiate medications are providing sufficient analgesia to allow the patient to participate in activities of daily living. The patient is not exhibiting any aberrant behavior suggestive of drug diversion. The patient is not having any adverse reactions to medications. The patient is not suffering from daytime somnolence or mental acuity changes. The patient is managing opiate-induced constipation with appropriate kooa-wfz-ytqboyf agents and dietary considerations. The patient was counseled on concern for caution with operating a motor vehicle while using opiate medications. A physical exam was performed and the patient's functional status was evaluated. All patients with back pain were advised against the bed rest greater than 4 days and were advised to return to normal activities. Pain score assessment was noted and the treatment plan was reviewed with the patient. All current medications, both prescribed and OTC were reviewed and reconciled on the electronic medical record. Tobacco screening was accomplished and smoking cessation was advised when indicated. BMI was noted and diet/exercise modification was recommended for all patients following outside normal parameters. I reviewed with the patient today their responsibilities to safeguard prescription medications, reviewed their responsibility to utilize medications [facility] [address] [place] [address] PAIN MANAGEMENT CONSULTATION Name: SONA VILLEGAS Room #: REG [facility]#: [id number] Admission: 12/26/19 Attend Phys: Lily King Discharge: Date of : 48 Report #: [id number] only as prescribed by the physician. They are to seek and receive pain medications only from 1 physician group ( [facility]). They are to use 1 pharmacy and keep the clinic informed if they change pharmacies. Their responsibilities include making followup visits in a timely fashion and to avoid abrupt discontinuation of medication usage. Their responsibilities further include bringing their medications (bottles from the pharmacy with residual pills) to the visit for possible confirmation of pill counts and the patient understands it is their responsibility to submit to random drug screens to ensure both that the medications prescribed are present, and that no other controlled substances are present. All prescriptions provided today were generated electronically. PLAN: 1. We discussed treatment options with the patient today. The patient is reporting overall doing quite well on her current regimen with no side effects noted from her opioids, we will refill her hydrocodone 10/325, #100 for today, 4-week and 8-week releases. These will be sent electronically by Dr. Toni Santos. 2. We will refill her Flexeril 10 mg t.i.d., #90 with 2 additional refills. 3. The patient instructed to call for an appointment when she is needing refills. The patient is seen today in collaboration with Dr. Toni Santos. <ELECTRONICALLY SIGNED> By: Lily King 12/30/19 1252 [id number] 2311 Lily King /jose
== END ==
LOC: PAIN 12-17 10:39
DX: Z76.0 Encounter for issue of repeat prescription (principal); M54.16 Radiculopathy, lumbar region; G89.4 Chronic pain syndrome; I10 Essential (primary) hypertension; Z79.891 Long term (current) use of opiate analgesic; Z79.899 Other long term (current) drug therapy

== ENCOUNTER → 2020-04-06 | Outpatient (CLI) | payer OTHER, BC ==
[~2020-04-06] VITALS: Ht 157.5 cm; Wt 83.0 kg
[2020-04-06 13:56] VITALS: BP 158/96
--- NOTE | 2020-04-06 14:03 | NUR ---
Pain Clinic Assessment: 1. History of Osteoarthritis: L SPINE KNEES History of Rheumatoid Arthritis: DENIES 2. Height: 5 ft. 2 in. 157.5 cm. Weight: 183.0 lb. oz. 83.008 kg. Patient's BMI: 33.5 3. Vital Signs: BP: 158/96 Pulse: 105 Resp: 16 Temp: 02 Sat: 100 ECG Mon: 4. Pain Intensity: 7 5. Fall Risk: Dizziness: N Needs help standing or walking: N Fallen in the last 3 months: N Fall risk comments: 6. Patient on Blood Thinner: None 7. History of Hypertension: Y 8. Opioid Therapy greater than 6 weeks: Y Opiate Contract Signed: 06/10/16 9. Risk Assessment Tool Provided: HIGH-8 10. Functional Assessment Tool: 11. Recreational Drug Use: Never Drug Type: Tobacco Use: Former Smoker Tobacco Type: Amount or Packs/day: How Many Years: Alcohol Use: Yes Frequency: Weekly Quant: 3 WINE
--- NOTE | 2020-04-07 08:29 | HPC ---
[facility] [address] [place] [address] PAIN MANAGEMENT CONSULTATION Name: SONA VILLEGAS Room #: REG [facility]..#: [id number] Admission: 04/06/20 Attend Phys: Lily King Discharge: Date of : 48 Report #: [id number] THIS REPORT FOR: cc: Vania Meade MD,Vania King,Lily VALDEZ ~ CC:Toni Santos MD DATE OF SERVICE: 04/06/2020 CHIEF COMPLAINT: Chronic low back pain with radiculopathy. HISTORY OF PRESENT ILLNESS: This is a very pleasant 69-year-old female who is well known to our pain clinic. She returns today for refill of her medications that she takes to help treat her ongoing low back pain. Today, she is reporting a pain score of 7/10. It is a dull, sharp pain that is worse with walking and standing. She feels that the medications are very beneficial as well as rest. She does not experience constipation as long as she takes Metamucil on a regular basis. Kim reports that she is excited to start exercising again in her pool, it was just opened up this weekend. She is looking forward to doing her exercises there this summer. She finds that beneficial as well as helping with her low back pain. ALLERGIES: No known drug allergies. CURRENT LIST OF MEDICATIONS: Flexeril 10 mg p.r.n., hydrocodone 10/325 p.r.n., trazodone, amlodipine, Nexium, Zoloft, Toviaz, and nabumetone. PQRS: 1. She has a history of osteoarthritis in her spine and knees. Denies any rheumatoid arthritis. 2. Height is 5 feet 2 inches, weight is 183, BMI is 33. Vital signs, 158/96, pulse is 105, respirations 16, oxygen sat is 100. 3. Pain score 7/10. 4. Denies dizziness, does not need help walking or standing, has not fallen in the last 3 months. 5. The patient is not on any blood thinners, but does take medicine for hypertension. Her opioid therapy is greater than 6 weeks; therefore, an opioid signed contract is on the chart. Her risk assessment is high. Functional assessment is 37/70. 6. Recreational drug use, she denies. She is a former smoker. She does drink wine every night. According to the prescription monitoring system, the patient last fill is 02/25/2020. She is taking the medicines slightly less than prescribed and due to fill these today. According to the [facility] guidelines, her morphine mEq per day [address] [address] PAIN MANAGEMENT CONSULTATION Name: SONA VILLEGAS Room #: REG [facility]#: [id number] Admission: 04/06/20 Attend Phys: Lily King Discharge: Date of : 48 Report #: [id number] is 20 MMEs. There is a recent drug screen on the chart that is appropriate as well. We will recheck it at her next appointment. PHYSICAL EXAMINATION: GENERAL: This is alert and orientated, well-developed, well-nourished, very pleasant 69-year-old female who appears her stated age, placing her current pain score today at 7/10. HEENT: Normocephalic, atraumatic. Extraocular eye muscles are intact. She is wearing a mask. MUSCULOSKELETAL: She has a slightly antalgic gait. Her lower extremity strength judged to be 5/5 in all major muscle groups. She has tenderness in her lumbosacral region that radiates into her buttock, into her legs following the L3-L4, L4-L5 dermatomal distribution. IMPRESSION: 1. Chronic intractable low back pain. 2. Lumbar radiculopathy following the L3-L4, L4-L5 dermatomal distribution. 3. Management of high risk medications under terms of written opioid agreement. We reviewed the fact that opiate medications are being used to provide analgesia adequate to support activities of daily living, not attempting to achieve a specific pain score on the 0-10 Visual Analog Scale. The current opiate medications are providing sufficient analgesia to allow the patient to participate in activities of daily living. The patient is not exhibiting any aberrant behavior suggestive of drug diversion. The patient is not having any adverse reactions to medications. The patient is not suffering from daytime somnolence or mental acuity changes. The patient is managing opiate-induced constipation with appropriate uxnj-hpn-amvtlet agents and dietary considerations. The patient was counseled on concern for caution with operating a motor vehicle while using opiate medications. PLAN: 1. We discussed treatment options with the patient today. The patient continues to find the hydrocodone very beneficial. We will refill these at , #100 for today 4 week an 8-week release. Dr. Toni Santos will send these electronically. The patient does take less than 3 a day on some days; therefore, she has been able to go slightly longer between fills. 2. The patient is not needing her cyclobenzaprine refill today. She does take these sparingly as needed. 3. We encouraged the patient to be as active as possible and are happy to hear that she is starting her water treatment therapy exercises again. [address] [address] PAIN MANAGEMENT CONSULTATION Name: SONA VILLEGAS Room #: REG [facility]#: [id number] Admission: 04/06/20 Attend Phys: Lily King Discharge: Date of : 48 Report #: [id number] 4. The patient is seen in collaboration with Dr. Toni Santos. At the next visit, we will check a random drug screen on her. <ELECTRONICALLY SIGNED> By: Lily King 04/07/20 0829 1425 2045 Lily King /jose
== END ==
LOC: PAIN 06:57
DX: M54.16 Radiculopathy, lumbar region (principal); Z79.891 Long term (current) use of opiate analgesic

== ENCOUNTER → 2020-07-16 | Outpatient (CLI) | payer OTHER, BC ==
[~2020-07-16] VITALS: Ht 157.5 cm; Wt 82.3 kg
[2020-07-16 13:21] VITALS: BP 142/91
--- NOTE | 2020-07-16 13:25 | NUR ---
Pain Clinic Assessment: 1. History of Osteoarthritis: L SPINE KNEES History of Rheumatoid Arthritis: DENIES 2. Height: 5 ft. 2 in. 157.5 cm. Weight: 181.4 lb. oz. 82.283 kg. Patient's BMI: 33.2 3. Vital Signs: BP: 142/91 Pulse: 104 Resp: 16 Temp: 02 Sat: 97 ECG Mon: 4. Pain Intensity: 4 5. Fall Risk: Dizziness: N Needs help standing or walking: N Fallen in the last 3 months: N Fall risk comments: 6. Patient on Blood Thinner: None 7. History of Hypertension: Y 8. Opioid Therapy greater than 6 weeks: Y Opiate Contract Signed: 06/10/16 9. Risk Assessment Tool Provided: HIGH-8 10. Functional Assessment Tool: 11. Recreational Drug Use: Never Drug Type: Tobacco Use: Former Smoker Tobacco Type: Amount or Packs/day: How Many Years: Alcohol Use: Yes Frequency: Quant:
--- NOTE | 2020-07-17 07:23 | HPC ---
[facility] [place] [address] [address] [place] [address] PAIN MANAGEMENT CONSULTATION Name: SONA VILLEGAS Room #: REG [facility].#: [id number] Admission: 07/16/20 Attend Phys: Lily King Discharge: Date of : 48 Report #: [id number] THIS REPORT FOR: cc: Vania Meade MD,Vania King,Lily VALDEZ ~ CC: Toni Santos MD DATE OF SERVICE: 07/16/2020 CHIEF COMPLAINT: Chronic low back pain with radiculopathy. HISTORY OF PRESENT ILLNESS: This is a very pleasant 70-year-old female who returns to the pain clinic today. She is reporting an increase in pain in her lower back that is radiating into her tailbone down her bilateral legs. She feels that her sciatica has increase in the last few weeks though she is unsure if she is needing an injection at this time. She is hopeful that the change in weather has been the cause of this increase in pain that she is reporting as a dull, sharp, aching pain at a 4/10. The patient reports walking, standing, and even sitting at times does increase her pain and feels that resting and her medication have been beneficial. She denies any problems with constipation or daytime somnolence as a result of her medications. Today, she is requesting refills of her current medication regimen. ALLERGIES: No known drug allergies. CURRENT LIST OF MEDICATIONS: Hydrocodone 10/325 p.r.n., Flexeril 10 mg every 8 hours p.r.n., trazodone, amlodipine, Nexium, Zoloft, Toviaz, and nabumetone. PQRS: 1. She has a history of osteoarthritis in her spine and bilateral knees. Denies any rheumatoid arthritis. 2. Height is 5 feet 2 inches, weight is 181, BMI is 33. 3. Vital signs: Blood pressure 142/91, pulse is 104, respirations 16, oxygen sat is 97%. Pain score is 4/10. 4. Fall risks: Denies dizziness, does not need help standing or walking, has not fallen in the last 3 months. The patient is not on any blood thinners, but does take medicine for hypertension. Opioid therapy is greater than 6 weeks; therefore, an opioid signed contract is on the chart. Risk assessment is high. Functional assessment is 37/70. 5. Recreational drug use, she denies. She is a former smoker and does drink alcohol. According to the prescription monitoring system, the patient is filling appropriately for her medications in a timely fashion. She is due to fill those today. Her morphine mEq according to the CDC guidelines is 27. [place] [address] PAIN MANAGEMENT CONSULTATION Name: IVLLEGASSONA Room #: REG [facility]#: [id number] Admission: 07/16/20 Attend Phys: Lily King Discharge: Date of : 48 Report #: [id number] random drug screen on this patient today. She reports taking her medications earlier today. PHYSICAL EXAMINATION: GENERAL: This is an alert and orientated, well-nourished, slightly obese, 70-year-old female who appears her stated age, placing her current pain score at 4/10. HEENT: Normocephalic, atraumatic. Extraocular eye muscles are intact. She is wearing a mask. MUSCULOSKELETAL: She has tenderness in her lumbosacral region that is radiating into her tailbone, into her bilateral legs following the L3-L4, L4-L5 dermatomal distribution. Pain is elicited when sitting or standing. Straight leg raising is positive bilaterally. She has an antalgic gait. Her lower extremity strength judged to be symmetrical. Strength in all major muscle groups of 5/5. IMPRESSION: 1. Chronic intractable low back pain. 2. Lumbar radiculopathy. 3. Management of high risk medications under terms of written opioid agreement. PLAN: 1. We discussed treatment options with the patient today. We feel that the medication is beneficial despite having an increase in pain lately. We did discuss a possible lumbar epidural steroid injection. She has not had one since 2017. The patient reports she will call if need be when she feels the pain is such so intense that she is not able to get out of bed. I encouraged the patient to call before it gets to that point and make an appointment with Dr. Toni Santos for an injection. 2. We will send her Flexeril 10 mg, #90 with 2 additional refills to her pharmacy today and Dr. Toni Santos will send electronically her hydrocodone 10/325, #100 for today, 4-week and 8-week release. 3. The patient is seen in collaboration with Dr. Toni Santos who will see her at her next visit. <ELECTRONICALLY SIGNED> By: Lily King 07/17/20 0723 1356 1513 Lily King /nt
== END ==
LOC: PAIN 06:45
PROVIDERS: ATTEND Clinical Nurse Specialist Adult Health
DX: M54.16 Radiculopathy, lumbar region (principal); G89.29 Other chronic pain; F11.20 Opioid dependence, uncomplicated; Z79.899 Other long term (current) drug therapy

== ENCOUNTER → 2020-10-08 | Outpatient (CLI) | payer OTHER, BC ==
[~2020-10-08] VITALS: Ht 160 cm; Wt 85.4 kg
[2020-10-08 14:45] VITALS: BP 134/72
--- NOTE | 2020-10-08 15:05 | NUR ---
Pain Clinic Assessment: 1. History of Osteoarthritis: L SPINE KNEES History of Rheumatoid Arthritis: DENIES 2. Height: 5 ft. 3 in. 160.0 cm. Weight: 188.2 lb. oz. 85.367 kg. Patient's BMI: 33.3 3. Vital Signs: BP: 134/72 Pulse: 57 Resp: 14 Temp: 02 Sat: 96 ECG Mon: 4. Pain Intensity: 6 5. Fall Risk: Dizziness: N Needs help standing or walking: N Fallen in the last 3 months: N Fall risk comments: 6. Patient on Blood Thinner: None 7. History of Hypertension: Y 8. Opioid Therapy greater than 6 weeks: Y Opiate Contract Signed: 06/10/16 9. Risk Assessment Tool Provided: HIGH-8 10. Functional Assessment Tool: 11. Recreational Drug Use: Never Drug Type: Tobacco Use: Former Smoker Tobacco Type: Amount or Packs/day: How Many Years: Alcohol Use: Yes Frequency: Quant:
--- NOTE | 2020-10-13 08:04 | HPC ---
[facility] [address] [place] [address] PAIN MANAGEMENT CONSULTATION Name: SONA VILLEGAS Room #: REG [facility]#: [id number] Admission: 10/08/20 Attend Phys: Lily King Discharge: Date of : 48 Report #: [id number] THIS REPORT FOR: cc: Vania Meade MD,Vania King,Lily VALDEZ ~ CC: Lily Santos MD DATE OF SERVICE: 10/08/2020 CHIEF COMPLAINT: Chronic low back pain with radiculopathy. HISTORY OF PRESENT ILLNESS: This is a very pleasant 70-year-old female who returns today for renewal of her opioid medications that she uses to help treat her ongoing low back pain that does radiate into her bilateral legs, greater on the right than the left. Today, she is reporting a pain score of 6/10. She is due to take her medicines in the morning when her medications are working. Her pain score is a 3/10. 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 This is causing significant increase in her pain. Today, she is wondering if she may have an increased slightly in her overall opioid medications from 100 to possibly 120 pills in a month. She does find the medicines as well as resting beneficial and denies any problems of daytime somnolence or constipation. ALLERGIES: No known drug allergies. CURRENT LIST OF MEDICATIONS: Hydrocodone , Flexeril p.r.n., trazodone, amlodipine, Nexium, Zoloft, Toviaz, nabumetone, Zoloft, Norvasc. PQRS: 1. She does have history of osteoarthritis in her spine as well as her bilateral knees. Denies any rheumatoid arthritis. 2. Height is 5 feet 3 inches, weight is 188, BMI is 33. 3. Vital signs 134/72, pulse is 57, respirations 14, oxygen sat is 96%. 4. Pain score is 3 with medications, 6 without. 5. Fall risk. She denies dizziness. She does not need help walking, has not fallen in the last 3 months. 6. The patient is not on any blood thinners, but does take medicine for hypertension. 7. Opioid therapy is greater than 6 weeks; therefore opioid signed contract is on the chart. Risk assessment is high. Functional assessment is 37/70. 8. Recreational drug use, she denies. She is a former smoker [place] [address] PAIN MANAGEMENT CONSULTATION Name: SONA VILLEGAS Room #: REG [facility]#: [id number] Admission: 10/08/20 Attend Phys: Lily King Discharge: Date of : 48 Report #: [id number] According to the prescription monitoring system, she is filling appropriately, due to fill her medications next week. Her morphine mEq is 30 MMEs per day. There is a drug screen on the chart that is appropriate and her medications. PHYSICAL EXAMINATION: GENERAL: This is alert and orientated 70-year-old female who appears her stated age. She is slightly obese, rating her pain score from 3-6 today. She is a good historian. HEENT: Normocephalic, atraumatic. Extraocular eye muscles are intact. She is wearing a mask. MUSCULOSKELETAL: She has tenderness in the lumbosacral region that does radiate into her bilateral legs, greater on the right following the L3-L4, L4-L5 dermatomal distribution. Straight leg raising is positive bilaterally. She has an antalgic gait with slight waddle affect. Pain is elicited with movement from the seated to standing position. Her lower extremity strength are symmetrical with good strength and muscle tone at 5/5 with good sensation from L1-S2. IMPRESSION: 1. Chronic intractable pain, low back pain. 2. Lumbar radiculopathy. 3. Osteoarthritis. 4. Management of high risk medications under terms of written opioid agreement. PLAN: 1. We discussed treatment options with the patient today. The patient would like to increase her medications slightly. We did discuss the CDC guidelines, though she does fall below the 50, morphine mEq that they recommend, we do continue lowest most effective dose. I have discussed this case with Dr. Toni Santos who collaborated care today. He is in agreement to increase one month of her medications to 120, then following her 4-week and 8-week at 100 pills each. This would allow her 20 extra pills to take on increasing pain days or when she is cleaning her house. The patient finds this an acceptable alternative and is thankful for the slight increase. We did discuss possible increase in constipation with increase of her opioids and she verbalized understanding to try and drink more liquids. 2. We did discuss a possible epidural steroid injection again, which we had previously provided as an option. The patient's is possibly having a total knee replacement soon, so she would like to hold off on this currently, but will consider it if her pain increases significantly. 3. The patient will follow up in 3 months or as needed. We will not send her Flexeril today, but if the patient does need this before her next visit, we will phone this medication. <ELECTRONICALLY SIGNED> By: Lily King 10/13/20 0804 1546 0739 Lily perez
== END ==
LOC: PAIN 06:55
PROVIDERS: ATTEND Clinical Nurse Specialist Adult Health
DX: M54.16 Radiculopathy, lumbar region (principal); G89.29 Other chronic pain; M19.90 Unspecified osteoarthritis, unspecified site; F11.20 Opioid dependence, uncomplicated; Z79.899 Other long term (current) drug therapy

== ENCOUNTER → 2021-01-14 | Outpatient (CLI) | payer OTHER, BC ==
[~2021-01-14] VITALS: Ht 160 cm; Wt 87.7 kg
[2021-01-14 10:50] VITALS: BP 159/100
--- NOTE | 2021-01-14 15:29 | HPC ---
[facility] [address] [place] [address] PAIN MANAGEMENT CONSULTATION Name: SONA VILLEGAS Room #: REG [facility]#: [id number] Admission: 01/14/21 Attend Phys: Lily King Discharge: Date of : 48 Report #: [id number] THIS REPORT FOR: cc: Vania Meade MD,Vania King,Lily VALDEZ ~ DATE OF SERVICE: 01/14/2021 CHIEF COMPLAINT: Chronic low back pain with radiculopathy. HISTORY OF PRESENT ILLNESS: This is a 70-year-old female who returns to the pain clinic today for renewal of her opioid medications. Today, the patient is complaining of pain in her low back with no radicular symptoms present today. She does report her pain as 4/10 and describes it as a dull aching sensation. Her pain is worse with walking and standing as well as cleaning the house. She believes her medication as well as resting and heat have been beneficial. The patient denies any constipation as a result of her medication. The patient is reporting that she believes she did not get 120 pills as we had discussed at her previous visit for an increase for one month of her medications. 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 The patient feels that she did not get the 120 pills in her first month of prescriptions and continued to have issues related to her cleaning. ALLERGIES: No known drug allergies. CURRENT LIST OF MEDICATIONS: Hydrocodone 10/325 p.r.n., Flexeril 10 mg t.i.d. p.r.n., trazodone, amlodipine, Nexium, sertraline, Toviaz and nabumetone. PQRS: 1. She has osteoarthritic changes in her spine as well as her knees bilaterally. Denies any rheumatoid arthritis. 2. Height is 5 feet 3 inches, weight is 193, BMI is 34. This is an increase of 5 pounds in the last 3 months. 3. Vital signs 159/100, pulse is 107, respirations 18, oxygen sat is 96%. 4. Pain score is 4/10. 5. Denies dizziness, does not need help walking or standing, has not fallen in the last 3 months. 6. The patient is not on any blood thinners, but does take medicine for hypertension. Opioid therapy is greater than 6 weeks; therefore, an opioid signed contract is on the chart. Risk assessment is high. Functional assessment is 37/70. 7. Recreational drug use, she denies. She is a former smoker and drinks 1 glass of [place] [address] PAIN MANAGEMENT CONSULTATION Name: VILLEGASSONA Room #: REG [facility]#: [id number] Admission: 01/14/21 Attend Phys: Lily King Discharge: Date of : 48 Report #: [id number] According to the prescription monitoring system, the patient is filling appropriately and due to fill her medications today. According to the prescription monitoring, she was given 120 pills in October per the documentation from her pharmacy. There is a drug screen on the chart that is appropriate as well. PHYSICAL EXAMINATION: GENERAL: This is alert and orientated 70-year-old female who appears her stated age, rating her pain score today at 4/10. HEENT: Normocephalic and atraumatic. Extraocular eye muscles are intact. Mucous membranes are moist and she is wearing a mask. MUSCULOSKELETAL: She has tenderness in the lumbosacral region with no radicular symptoms present today, though at times does radiate into the L3-L4, L4-L5 dermatomal distribution. Straight leg raising is negative. She has an antalgic gait. Tenderness in her bilateral knees with no edema present. She is without scoliosis, kyphosis or lordosis. Strength in all lower extremity muscle groups is symmetrical at 5/5. IMPRESSION: 1. Chronic intractable low back pain. 2. History of lumbar radiculopathy. 3. Complicated management of high risk medications under terms of written opioid agreement. We reviewed the fact that opiate medications are being used to provide analgesia adequate to support activities of daily living, not attempting to achieve a specific pain score on the 0-10 Visual Analog Scale. The current opiate medications are providing sufficient analgesia to allow the patient to participate in activities of daily living. The patient is not exhibiting any aberrant behavior suggestive of drug diversion. The patient is not having any adverse reactions to medications. The patient is not suffering from daytime somnolence or mental acuity changes. The patient is managing opiate-induced constipation with appropriate [id number] agents and dietary considerations. The patient was counseled on concern for caution with operating a motor vehicle while using opiate medications. PLAN: 1. We discussed treatment options with the patient today. We did discuss that it appears she was given 120 pills in October per our written orders. I encouraged her to not leave the pharmacy without counting her pills today to verify that she was given 120 in her first prescription. Then her second and third month prescriptions will be decreased back to her 100 tablets per month. She will be able to utilize these extra pills on her cleaning days. Scripts sent electronically today by Dr. Santos for her hydrocodone . These were sent for release today for 02/11/2021 and 03/11/2021. [facility] [place] [address] PAIN MANAGEMENT CONSULTATION Name: SONA VILLEGAS Room #: REG [facility]#: [id number] Admission: 01/14/21 Attend Phys: Lily King Discharge: Date of : 48 Report #: [id number] 2. I will continue her on her Flexeril 10 mg, #90 with 2 additional refills given. 3. The patient has received her first COVID vaccine. She is scheduled for her second soon. We did discuss possible side effects of this injection and treatment options. 4. The patient is seen in collaboration with Dr. Toni Santos today. Time spent with the patient in consultation, reviewing imaging, recent studies, clinical notes and reports, physical examination in correlation of findings of medical documentation to determine possible treatments of 12 minutes. Time spent in preparation for appointment, reviewing prescription monitoring system, review of previous records, and current medications: 5 minutes. Time spent in preparation and sending electronic prescriptions and documentation of visit and plan of treatment with collaborating physician, Dr. Toni Santos: 8 minutes. Total time spent 25 minutes. <ELECTRONICALLY SIGNED> By: Lily King 01/14/21 [id number] [id number] Lily King /jose
== END ==
LOC: PAIN 06:43
PROVIDERS: ATTEND Clinical Nurse Specialist Adult Health
DX: M54.16 Radiculopathy, lumbar region (principal); G89.29 Other chronic pain; Z79.899 Other long term (current) drug therapy; Z88.8 Allergy status to other drugs, medicaments and biological substances

== ENCOUNTER → 2021-04-15 | Outpatient (CLI) | payer OTHER, BC ==
[~2021-04-15] VITALS: Ht 160 cm; Wt 87.4 kg
[2021-04-15 11:07] VITALS: BP 142/94
--- NOTE | 2021-04-15 11:17 | NUR ---
Pain Clinic Assessment: 1. History of Osteoarthritis: L SPINE KNEES History of Rheumatoid Arthritis: DENIES 2. Height: 5 ft. 3 in. 160.0 cm. Weight: 192.6 lb. oz. 87.363 kg. Patient's BMI: 34.1 3. Vital Signs: BP: 142/94 Pulse: 101 Resp: 18 Temp: 02 Sat: 96 ECG Mon: 4. Pain Intensity: 4 5. Fall Risk: Dizziness: N Needs help standing or walking: N Fallen in the last 3 months: N Fall risk comments: 6. Patient on Blood Thinner: None 7. History of Hypertension: Y 8. Opioid Therapy greater than 6 weeks: Y Opiate Contract Signed: 06/10/16 9. Risk Assessment Tool Provided: HIGH-8 10. Functional Assessment Tool: 11. Recreational Drug Use: Never Drug Type: Tobacco Use: Former Smoker Tobacco Type: Amount or Packs/day: How Many Years: Alcohol Use: Yes Frequency: Weekly Quant: 1
== END ==
LOC: PAIN 07:09
PROVIDERS: ATTEND Anesthesiology Pain Medicine
DX: M47.26 Other spondylosis with radiculopathy, lumbar region (principal); G89.4 Chronic pain syndrome; E66.01 Morbid (severe) obesity due to excess calories; I10 Essential (primary) hypertension; Z79.891 Long term (current) use of opiate analgesic; Z79.899 Other long term (current) drug therapy

== ENCOUNTER → 2021-07-15 | Outpatient (CLI) | payer OTHER, BC ==
[~2021-07-15] VITALS: Ht 157.5 cm; Wt 88.5 kg
[2021-07-15 09:34] VITALS: BP 157/88
== END ==
LOC: PAIN 08:25
PROVIDERS: ATTEND Clinical Nurse Specialist Adult Health
DX: G89.29 Other chronic pain (principal); M47.26 Other spondylosis with radiculopathy, lumbar region; I10 Essential (primary) hypertension; E66.01 Morbid (severe) obesity due to excess calories; Z98.84 Bariatric surgery status

== ENCOUNTER 2021-08-28 20:15 | Inpatient (IN) | payer OTHER, BC ==
[~2021-08-28] VITALS: Ht 157.5 cm; Wt 90.3 kg
--- NOTE | ~2021-08-28 | EMS ---
[address] [address] EMS Patient Care Report Name: SONA VILLEGAS Room #: 443-P ADM IN ..#: [id number] Admission: 08/29/21 Attend Phys: Adarsh Gasca MD Discharge: Date of : 48 Report #: [id number] THIS REPORT FOR: //name// Report Transmitted: 08/29/2021 06:23 EMS Care Summary [facility] MED-ACT Incident [id number] @ 08/28/2021 19:21 Incident Location [address] [place] [address] Patient SONA VILLEGAS Female, 71 Years 1950 Patient Address [address] [place] [address] Patient History Hypertension (HTN),Chronic Pain, Patient Allergies No known allergies, Patient Medications Trazodone, Hydrocodone, Chief Complaint My wrist and knee hurt Disposition Transported No Lights/[place] [facility] Reason Falls Transported To [facility] Narrative Arrived on scene to find a 71 y/o female who was laying prone on carpeted floor of her bedroom. Pt was alert, in obvious distress with noticeable deformity to her left wrist. S47 ALS first responders on scene assessing pt who reports that she accidentally tripped and fell, injuring her left wrist and left knee when [address] [address] EMS Patient Care Report Name: SONA VILLEGAS Room #: 443-P [facility] IN [facility]#: [id number] Admission: 08/29/21 Attend Phys: Adarsh Gasca MD Discharge: Date of : 48 Report #: [id number] she struck the carpeted floor. Pt c/o pain to her left wrist and left knee. Pt rates her wrist pain at a 8/10 and rates her knee pain at a 6/10. Pt denied any head, neck or back pain and also denied any loss of consciousness. Pt denied any dizziness as a possible cause of her fall. Pt's fall was witnessed by her and he agreed with information provided by the pt. Pt denied any other medical complaints and was transported to ED for further eval and tx. See assessment tab, VS tab and flowchart for further pt care information. Note: Full set of VS not obtained during the first 5 minutes of pt contact due to the pt's position and discomfort from her injuries. Initial Vitals @19:58P: 89,BP: 143/81,SpO2: 99, @20:02P: 37,SpO2: 100,IN Suspected: false @20:08P: 89,R: 14,BP: 142/75,Pain: 4/10,GCS: 15,SpO2: 98,Revised Trauma: 12, @19:42P: 85,R: 18,BP: 157/87,Pain: 8/10,GCS: 15,Temp: 97.8F,SpO2: 99,Revised Trauma: 12, Impression Injury of Wrist, Hand, or Fingers Procedures @19:59 Fentanyl - 50 Micrograms (mcg) - Intravenous (IV) Response: Improved @19:48 Fentanyl - 50 Micrograms (mcg) - Intravenous (IV) Response: Improved @19:47 IV Therapy - Saline Lock 10cc (20 ga) Site: Antecubital-Right Response: UnchangedSucceeded @19:37 Splint Fx/Disloc. Response: UnchangedSucceeded Timeline 19:19,Call Received 19:19,Psap Call 19:21,Dispatched 19:22,En Route 19:33,On Scene 19:35,At Patient 19:37,Splint Fx/Disloc.,Response: UnchangedSucceeded, 19:42,BP: 157/87 M,PULSE: 85,RR: 18 R,SPO2: 99 Ox,ETCO2: ,BG: ,PAIN: 8,GCS: 15, 19:47,IV Therapy - Saline Lock 10cc 20 ga Site: Antecubital-Right,Response: UnchangedSucceeded, 19:48,Fentanyl - 50 Micrograms (mcg) - Intravenous (IV),Response: Improved 19:58,BP: 143/81 M,PULSE: 89,RR: R,SPO2: 99 Ox,ETCO2: ,BG: ,PAIN: ,GCS: , 19:59,Fentanyl - 50 Micrograms (mcg) - Intravenous (IV),Response: Improved 20:01,Depart Scene [address] [address] EMS Patient Care Report Name: SONA VILLEGAS Room #: 443-P [facility] IN [facility]#: [id number] Admission: 08/29/21 Attend Phys: Adarsh Gasca MD Discharge: Date of : 48 Report #: [id number] 20:02,BP: / M,PULSE: 37,RR: R,SPO2: 100 Ox,ETCO2: ,BG: ,PAIN: ,GCS: , 20:08,BP: 142/75 M,PULSE: 89,RR: 14 R,SPO2: 98 Ox,ETCO2: ,BG: ,PAIN: 4,GCS: 15, 20:10,At Destination 20:36,Call Closed Disclaimer v1.1 Copyright 2020 [employer] This EMS Care Summary contains data elements from the applicable legal record (which may be displayed differently). It is designed to provide pertinent information for the following purposes: continuity of care, clinical quality, and state data reporting. The complete legal record is available to ED staff and administrators of the receiving hospital in [facility]'s Patient Tracker. All data is provided "as is."
--- NOTE | ~2021-08-28 | HC ---
[facility] [place] [address] [address] [place] [address] CONSULTATION Name: SONA VILLEGAS Room #: 443-P [facility] IN ..#: [id number] Admission: 08/29/21 Attend Phys: Adarsh Gasca MD Discharge: Date of : 48 Report #: [id number] THIS REPORT FOR: cc: Vania Meade MD,Vania James,Efrem Sher MD ~ DATE OF SERVICE: 08/30/2021 HISTORY OF PRESENT ILLNESS: The patient is a 71-year-old white female who had a fall from standing position, tripped over a cable on the floor. She sustained a left wrist fracture and also had left knee pain. She was diagnosed with a left distal radius fracture and a left distal femur fracture and underwent ORIF of the left distal radius and intramedullary nailing of the left distal femur, periprosthetic fracture with quad repair both on 08/26/2021. She is limited to toe touch weightbearing, left lower extremity and a 2-pound weight restriction, left upper extremity. She hit her head, but no loss of consciousness. We are seeing her in rehabilitation medicine consultation. PAST MEDICAL HISTORY: Includes hypertension, GERD, and gastric bypass. ALLERGIES: Please see the allergy listing. No note of any drug allergies. MEDICATIONS: Please see the full medication list. SOCIAL HISTORY: Lives in a house with her , 1-step in, did not utilize an assistive device. An adult son also lives there, but works. The spouse just had a total knee replacement about a week ago and is using a walker himself. REVIEW OF SYSTEMS: Did not offer any current complaints of chest pain, shortness of breath, or abdominal discomfort. PHYSICAL EXAMINATION: GENERAL: A 71-year-old white female in no obvious distress. She is alert, pleasant. HEENT: Appeared to be benign. VITAL SIGNS: Temperature 37.6, pulse 102, respirations 18, blood pressure 144/102. NEUROLOGIC: She follows basic 1-step commands. EXTREMITIES: She has functional range of motion and strength of the right upper and right lower extremity without obvious focal weakness. Left upper extremity reveals the Michi wrap in place over that left wrist with splinting. She is able to lift that left arm up about a foot off the bed. Some slight distal swelling of the left fingers as expected postoperatively and the left lower extremity, she was able to lift the left leg, some just off the bed. She could wiggle her toes. Functionally, she is max assist, supine to sit; sit to stand is max assist, [place] [address] CONSULTATION Name: SONA VILLEGAS Room #: 443-P [facility] IN ..#: [id number] Admission: 08/29/21 Attend Phys: Adarsh Gasca MD Discharge: Date of : 48 Report #: [id number] ASSESSMENT: A 71-year-old white female with the following problem list: 1. Left distal femur fracture, status post intramedullary nail, 08/26/2021. 2. Left distal radius fracture, status post Open reduction and internal fixation, 08/26/2021. 3. Toe touch weightbearing left lower extremity with 2-pound weight restriction in left upper extremity. 4. She hit her head, but no loss of consciousness. 5. Prior medical history, otherwise as noted above. PLAN: I do not see that she meets the medical necessity requirements for an acute [address] [place] [address] inpatient rehabilitation stay. She is at a lower level and I am anticipating this is going to be a longer therapy course for her to gradually improve her overall independence plus her is just passed a total knee replacement himself. I would recommend a [facility] facility stay as most appropriate for her. Thank you for asking us to assist in this patient's care. By: 1538 [id number] Efrem James MD /nt
[2021-08-28 20:16] VITALS: BP 151/88
[2021-08-28] MEDS ORDERED: OMEPRAZOLE 20 M20 M1 PO (20:23)
[2021-08-28 21:03] LABS: ABSOLUTE NEUTROPHILS 6.1 thou/uL (1.4-8.2); BASOPHILS 0.4 % (0.0-2.0); EOSINOPHILS 1.7 % (0.0-3.0); HEMATOCRIT 40.3 % (37.0-47.0); HEMOGLOBIN 13.7 gm/dL (12.0-15.0); LYMPHOCYTES 19.9 % (24.0-44.0); MCH 32.7 pg (26.0-34.0); MCHC 33.9 g/dL (28.0-37.0); MCV 96.3 fL (80.0-100.0); MONOCYTES 6.9 % (1.0-8.0); PLATELET COUNT 319 thou/uL (150-400); POLYS 71.1 % (36.0-66.0); RBC 4.18 mil/uL (4.20-5.00); RDW 14.1 % (10.5-14.5); WBC 8.6 thou/uL (4.0-11.0)
[2021-08-28 21:07] LABS: CALCIUM 8.3 mg/dL (8.5-10.1); CREATININE 0.7 mg/dL (0.6-1.0); POTASSIUM 3.8 mmol/L (3.5-5.1)
[2021-08-28 21:13] LABS: ALBUMIN 3.4 g/dL (3.4-5.0); TOTAL BILIRUBIN 0.2 mg/dL (0.2-1.0); TOTAL PROTEIN 6.4 g/dL (6.4-8.2)
[2021-08-29] VITALS (7 sets, daily range): BP systolic 112–187; BP diastolic 51–101
--- NOTE | 2021-08-29 00:10 | NUR ---
CONSIOUS SEDATION REDUCTION OF LEFT WRIST PROCEDURE DONE BY DR OROZCO T EUGENIA RN, NAVEEN Esqueda HERB COUNSELOR. SEE PAPERDOCUMENTATION FOR DETAILS
--- NOTE | 2021-08-29 04:10 | NUR ---
PT ARRIVED TO THE UNIT AT AROUND 0030 HRS. PT IS ALERT AND ORIENTED. WITH STRESS INCONTINENCE, EXTERNAL FEMALE CATH APPLIED. PT HAS SLING TO LEFT HAND. LEFT FINGERS WITH GOOD CAP REFILL, WARMTH AND MOVEMENT-ELEVATION PROVIDED. LEFT LE WITH IMMOBILIZER. PT REFUSED SCD TO RLE. SHE IS NPO.SHE IS LEFT HANDED SO UNABLE TO SIGN ANY CONSENTS GIVEN SHE HAS THE LEFT WRIST IN A SPLINT-. AFEBRILE.MORPHINE GIVEN FOR PAIN. UNDERSTANDS POC. INTRODUSCED TO STAFF AND USE OF CALL LIGHT. WILL CONTINUE WITH POC TILL EOS.
--- NOTE | 2021-08-30 03:06 | NUR ---
PT CAME BACK TO THE FLOOR FROM PACU AT SHIFT CHANGE.PT STILL DROWSY WHEN SHE CAME UP TO THE FLOOR,EASILY AROUSABLE.DRSG TO HER L WRIST AND L KNEE C/DI.PT STARTED ON CLEAR LIQUIDS,JENNY WELL.4X4 DRSG TO HER L THIGH,INTACT.IMMOBILIZER TO HIS L KNEE.PT ON 2L/NC FOR COMFORT.PT CONT ON IVF AND IV ABX.PT SLEEPING ON HER BED AT THIS TIME.CALL LIGHT WITHIN REACH.
[2021-08-30 05:17] VITALS: BP 128/76
[2021-08-30 07:45] VITALS: BP 144/102
[2021-08-30 10:51] LABS: HEMATOCRIT 25.3 % (37.0-47.0); MCH 33.1 pg (26.0-34.0); MCV 97.5 fL (80.0-100.0); RBC 2.59 mil/uL (4.20-5.00); RDW 13.8 % (10.5-14.5); WBC 7.4 thou/uL (4.0-11.0)
[2021-08-30 10:57] LABS: HEMOGLOBIN 8.6 gm/dL (12.0-15.0)
[2021-08-30 11:12] LABS: ALBUMIN 2.7 g/dL (3.4-5.0); CALCIUM 7.6 mg/dL (8.5-10.1); CREATININE 0.8 mg/dL (0.6-1.0); MAGNESIUM 1.7 mg/dL (1.8-2.4); PHOSPHORUS 3.1 mg/dL (2.5-4.9); POTASSIUM 3.6 mmol/L (3.5-5.1)
--- NOTE | 2021-08-30 15:53 | NUR ---
PT ADMITTED RELATED TO LEFT FEMUR AND WRIST FX S/P ORIF. CM REVIEWED CHART AND SPOKE WITH CARE TEAM. CM MET WITH PT AT BEDSIDE THIS DAY. PT APPEARED TO BE A&O X4. CM ROLE INTRODUCED. PT INDICATED SHE RESIDES IN A HOUSE WITH HER SPOUSE AND SON WITH 1 STEP TO ENTER AND NO STEPS INSIDE. PT INDICATED SHE HAD A FWW FOR HOME USE BUT THAT HER SPOUSE IS USING IT RIGHT NOW AFTER A TKR LAST WEEK. 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 PT INDICATED THAT SHE HAD OP THREAPY WHEN SHE HAD A JOINT REPLACEMENT A FEW YRS BACK BUT NO SKILLED OR ACUTE THRERAPY HX. PT AND OT INDICATED THAT PT WOULD BENEFIT FROM SHORT TERM POST ACUTE CARE STAY. 5N CONSULT ENTERED. PT IS TTWB ON LLE. CM FOLLOWING REGARDING DC PLANNING.
[2021-08-30 16:10] VITALS: BP 148/72
--- NOTE | 2021-08-30 16:10 | NUR ---
REFERRAL RECEIVED FOR ACUTE INPATIENT REHAB. PT WILL BE EVALUATED AND LIAISON TO FOLLOW UP WITH CASE MANAGEMENT.
[2021-08-30 16:14] VITALS: BP 148/72
--- NOTE | 2021-08-30 17:00 | NUR ---
Pt A & O x4. Pt worked with PT/OT this shift. PT Vs stable. pt received medications as ordered. pt had pain and received PRN medications. pt is room air. Pt is able to make needs known. Pt is NSR on the tele.
[2021-08-30 19:43] VITALS: BP 117/58
--- NOTE | 2021-08-31 02:33 | NUR ---
ASSESSED AT START OF SHIFT. EVENING MEDS GIVEN AND PT JENNY IT WELL. INCONTINENT. FALL PREC IN PLACE. LEFT KNEE AND LEFT ARM WRAPPED IN VEE BACND. FALL PREC IN PLACE AND CALL LIGHT AT REACH WILL CONT TO MONITOR.
[2021-08-31 04:58] VITALS: BP 138/68
[2021-08-31 07:45] VITALS: BP 96/50
[2021-08-31 12:09] VITALS: BP 113/62
--- NOTE | 2021-08-31 12:21 | NUR ---
PT WAS ASSESSED BY DR. SALDAÑA YESTERDAY FOR POSSIBLE 5N. HE INDICATED THAT PT DIDN'T HAVE MEDICAL COMPLEXITY FOR ADMISSION AND RECOMMENDED SNF. CM FOLLOWED UP WITH PT AT BEDSIDE THIS DAY AND WENT OVER SNF LIST WHICH CM HAD PROVIDED YESTERDAY. PT TO LOOK IT OVER AND INDICATED WHERE SHE WOULD LIKE REFERRALS SENT. CM FOLLOWING REGARING DC PLANNING.
[2021-08-31 15:36] VITALS: BP 133/75
[2021-08-31 19:40] VITALS: BP 127/57
[2021-09-01 04:21] VITALS: BP 133/64
--- NOTE | 2021-09-01 04:21 | NUR ---
PT IS A/O X4 AND IS CURRENTLY ON BEDREST FOLLOWING A FALL WITH A FX TO THE LEFT WRIST AND LEFT LEG. ROOM AIR. SR ON THE MONITOR. INCONTINENT OF BOWEL AND BLADDER. NO BM THIS SHIFT. C/O PAIN. PRN PAIN MEDICATION GIVEN DIRECTED. FALL PRECAUTIONS IN PLACE, CALL LIGHT IS WITHIN REACH.
[2021-09-01 07:37] VITALS: BP 138/81
[2021-09-01 11:27] VITALS: BP 121/60
--- NOTE | 2021-09-01 15:30 | NUR ---
PT ASKED THAT REFERRAL BE SENT TO [facility] FOR REVIEW FOR POSSIBLE ADMISSION. THEY CAN ACCEPT PT THIS DAY. CARE TEAM INDICATED THAT PT IS DC READY. CM FAXED ORDERS. TRANSPORT ARRANGED FOR [id number]. PT AND SPOUSE ARE AWARE AND AGREEABLE. CHART COPY MADE. NURSE GIVEN NUMBER FOR REPORT. NO OTHER CM INTERVENTION INDICATED. CASE CLOSED.
[2021-09-01 16:57] VITALS: BP 140/68
--- NOTE | 2021-09-01 18:05 | NUR ---
Assumed pt care vs stable, POC followed, pain managed with medications partial relief is noted. Was estrada to work with physical therapy diet and medicatiosn are tolerated well. POC followed, at the bedside. CAlled report to the facility. 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
--- NOTE | 2021-09-01 20:22 | NUR ---
PT D/C AT 2008 TO FACILITY.
== END 2021-09-01 20:10 | DRG 481 ==
LOC: ER 20:15 → 4S 08-29 00:21 → EROBS 08-29 00:21 → 4S 08-29 01:22
PROVIDERS: Emergency Medicine; Surgery; ADMIT Surgery; ATTEND Surgery
DX: S52.502A Unspecified fracture of the lower end of left radius, initial encounter for closed fracture (principal); S72.402A Unspecified fracture of lower end of left femur, initial encounter for closed fracture; M97.02XA Periprosthetic fracture around internal prosthetic left hip joint, initial encounter; S52.602A Unspecified fracture of lower end of left ulna, initial encounter for closed fracture; R39.81 Functional urinary incontinence; I10 Essential (primary) hypertension; K21.9 Gastro-esophageal reflux disease without esophagitis; F32.9 Major depressive disorder, single episode, unspecified; G89.29 Other chronic pain; M54.9 Dorsalgia, unspecified; Z20.822 Contact with and (suspected) exposure to COVID-19; Z90.49 Acquired absence of other specified parts of digestive tract; W18.39XA Other fall on same level, initial encounter; Y93.89 Activity, other specified; Y92.89 Other specified places as the place of occurrence of the external cause; Y99.8 Other external cause status
CPT/HCPCS: 10100; 10195; 50101; 50386; 50403; 51014; 51412; 53170; 56525; 56527; 56528; 57091; 5717; 57178; 57506; 57507; 58278; 58280; 58281; 58282; 59034; 59035; 59036; 59037; 59038; 62110; 62900; 70005

== ENCOUNTER → 2021-11-08 | Outpatient (CLI) | payer OTHER, BC ==
[~2021-11-08] MED LIST changes: +OMEPRAZOLE 20 M20 M1 PO
[2021-11-08 10:38] VITALS: BP 165/98
--- NOTE | 2021-11-08 11:06 | NUR ---
Pain Clinic Assessment: 1. History of Osteoarthritis: L SPINE KNEES History of Rheumatoid Arthritis: DENIES 2. Height: 5 ft. 3 in. 160.0 cm. Weight: lb. oz. kg. Patient's BMI: 3. Vital Signs: BP: 165/98 Pulse: 91 Resp: 20 Temp: 02 Sat: 98 ECG Mon: 4. Pain Intensity: 7 5. Fall Risk: Dizziness: N Needs help standing or walking: Y Fallen in the last 3 months: Y Fall risk comments: 6. Patient on Blood Thinner: None 7. History of Hypertension: Y 8. Opioid Therapy greater than 6 weeks: Y Opiate Contract Signed: 06/10/16 9. Risk Assessment Tool Provided: HIGH-8 10. Functional Assessment Tool: 11. Recreational Drug Use: Never Drug Type: Tobacco Use: Never Smoker Tobacco Type: Amount or Packs/day: How Many Years: Alcohol Use: Yes Frequency: Quant:
== END ==
LOC: PAIN 09:30
PROVIDERS: ATTEND Clinical Nurse Specialist Adult Health
DX: M47.26 Other spondylosis with radiculopathy, lumbar region (principal); E66.01 Morbid (severe) obesity due to excess calories; Z98.84 Bariatric surgery status; Z79.899 Other long term (current) drug therapy